=== PATIENT | female | born 1950 | race Caucasian/White ===

== ENCOUNTER 2020-04-06 11:34 | Outpatient (CLI) | payer MEDICARE, SELFPAY ==
--- NOTE | 2020-04-06 11:50 | MM_ITS ---
WS: [id number] BILATERAL SCREENING DIGITAL MAMMOGRAM WITH CAD HISTORY: SCREEN COMPARISON: 01/22/2019 and 01/04/2019 and 11/19/2017 Bilateral CC and MLO views submitted. Computer aided detection analyzed. Breast composition: There are scattered areas of fibroglandular density. No suspicious masses, microc alcifications or architectural distortion. Nodular asymmetries are present in the upper-outer quadran ts of each breast. Similar in appearance to the prior study of 01/04/2019. Benign calcifications withi n each breast. MM/[place] [id number] IMPRESSION: BI-RADS: 2-Benign FOLLOW UP: 1 Year Follow-up
== END 2020-04-06 11:35 | disposition home or self-care (01) ==
LOC: RADSHAW 11:44
PROVIDERS: PCP Family Medicine; Visit Provider Family Medicine
DX: Z12.31 Encounter for screening mammogram for malignant neoplasm of breast (principal)
CPT/HCPCS: 77067

== ENCOUNTER 2020-10-11 01:00 | Inpatient (IN) | payer MEDICARE, SELFPAY ==
[2020-10-11] VITALS (95 sets, daily range): BP systolic 90–169; BP diastolic 63–101; PULSE 51–93; RESP 6–25; TEMP 36.4–37; O2SAT 90–100; BMI 24.6
--- NOTE | 2020-10-11 01:17 | ECG_ITS ---
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 Operator: : 1950 Requested By: Winsome Cavazos Order Number: [id number] Rajesh MD: NEREYDA JETER Measurements Intervals [place] Rate: 66 P: 73 [place]: 154 QRS: 76 QRSD: 109 T: 49 QT: 411 QTc: 433 Interpretive Statements SINUS RHYTHM WITH MARKED SINUS ARRHYTHMIA ST DEPRESSION, CONSIDER SUBENDOCARDIAL INJURY [0.1+ mV ST DEPRESSION] Compared to ECG 06/12/2018 14:23:52 ST (T wave) deviation now present Electronically Signed On 10-11-2020 19:37:47 OIL REFINERY PROCESS TECHNICIAN by NEREYDA JETER [id number]
--- NOTE | 2020-10-11 01:17 | XR_ITS ---
WS: [id number] Exam: XR chest 1V portable [id number] Date/Time of Exam: 10/11/2020 1:26 AM Reason For Exam: chest pain Comparison 06/12/2018. The lungs are fully expanded. No consolidating infiltrates or pleural effusions. Normal cardiomediast inal structures and regional bony elements. Mild plaque atelectasis in the left base. Monitoring lead s superimpose the chest. XR/XR chest 1V portable [id number] IMPRESSION: 1. No acute cardiopulmonary finding. 2. Mild left basal plaque atelectasis.
[2020-10-11 01:28] LABS: Basophils # 0.1 10^3/uL (0.0-0.1); Basophils % 0.8 %; Eosinophils # 0.3 10^3/uL (0.0-0.8); Hematocrit 47.4 % (37.0-47.0); Hemoglobin 15.1 g/dL (11.5-15.3); Lymphocytes # 3.1 10^3/uL (0.8-4.8); Lymphocytes % 32.4 %; Mean Corpuscular HGB Conc 31.9 g/dL (30.0-36.0); Mean Corpuscular Hemoglobin 31.1 pg (28.0-34.0); Mean Corpuscular Volume 97.7 fL (81-99); Mean Platelet Volume 10.2 fL (7.4-10.4); Monocytes # 0.8 10^3/uL (0.2-0.9); Monocytes % 8.1 %; Neutrophils # 5.34 10^3/uL (1.8-7.7); Neutrophils % 55.5 %; Nucleated Red Blood Cells % 0 %; Platelet Count 324 10^3/cmm (130-400); Red Blood Count 4.85 10^6/uL (4.1-5.3); Red Cell Distribution Width 13.2 % (12.1-15.1); White Blood Count 9.6 10^3/uL (4.0-10.0)
[2020-10-11] MEDS: aspirin 81 mg Chew Tablet 324 MG PO (01:28)
[2020-10-11] MEDS: LORazepam 2 mg/mL INJ 1 mL 0.5 MG IVP (01:28)
[2020-10-11 01:39] LABS: D Dimer <= 0.27 ug/mIFEU (0-0.59)
[2020-10-11] MEDS: clopidogrel 300 mg Tablet PO (01:53)
[2020-10-11] MEDS: enoxaparin 80 mg/0.8 mL Syringe 60 MG SUBCUT (01:54)
--- NOTE | 2020-10-11 02:16 | PC.NURSE ---
Lab called and stated they would attempt collecting the blood, green top and red, top on the pt due to multiple missed attempts by nursing staff. Lab states it will be 15-20 minutes.
--- NOTE | 2020-10-11 02:41 | W.ED.GENADLT ---
HPI - General Adult General: Chief complaint: General Medical Stated complaint: Bilateral Arm Heaviness Time Seen by Provider: 10/11/20 01:05 History of Present Illness: HPI narrative: This patient is a 70-year-old female who presents with vague complaints of not feeling well. She has been having heaviness in her arms bilaterally since yesterday. This is been a intermittent symptom. Tonight she woke up from sleep with sweating, lightheadedness, nausea. She also has the very uncomfortable feeling in both arms again. She repeatedly apologized for not being able to tell me what is wrong. During my history and physical she became anxious and unable to remain still in the bed. She kept trying to sit up and lay down to get more comfortable. She denied any pain during this episode but just said she did not feel right. She denies a history of cardiac disease. She had a episode less severe than this a few years ago and was seen here in the ER. At that time she had a stress test that was unremarkable. She tells me that she was diagnosed with anxiety at that time. She has not been sick recently. No fever, cough, malaise, diarrhea. Onset (ago): day(s) (Intermittent for 1 day) Location: back, left, right and upper extremity Radiation: non-radiation Pain Consistency: intermittent Associated symptoms: Reports diaphoresis, dyspnea, malaise, nausea and other (Sense of impending doom); Deny chest pain, headache(s) or rash Review of Systems General: Reports: 10 or more systems reviewed and unremarkable except in HPI and below Const: Reports: malaise and diaphoresis Eyes: Denies: change in vision ENMT: Denies: odynophagia Card: Denies: chest pain or swelling of feet/ankles Resp: Reports: dyspnea GI: Reports: nausea : Denies: flank pain or difficulty voiding Musc: Denies: neck pain or back pain Skin/Breast: Denies: rash Neuro: Denies: headache(s), numbness in extremities or weakness in extremities Jamal/Lymph: Denies: easy bruising or easy bleeding Physical Exam Const: COMMON NORMALS: patient oriented x3, no limitations and alert GENERAL APPEARANCE: cooperative, in distress and anxious HENMT: HEAD & SCALP: normal to inspection FACE & SINUS: normal facial exam Eye: GENERAL EYE: appearance normal, both eyes and all related structures Neck/C-Spine: COMMON NORMALS: supple, no meningeal signs and no JVD Chest: COMMONS NORMALS: normal inspection of the chest Resp: COMMON NORMALS: normal respiratory effort, No use of accessory muscles and clear to auscultation bilaterally AUSCULTATION: clear to auscultation bilaterally Cardio: COMMON NORMALS: no JVD, regular rate, regular rhythm and No murmurs present (Cardio) RATE: regular rate RHYTHM: regular rhythm GI: COMMON NORMALS: Normal to inspection, nondistended, normoactive bowel sounds present, Soft to palpation and non-tender INSPECTION: Yes normal to inspection AUSCULTATION: Yes normoactive bowel sounds PALPATION: Yes Soft to palpation Back/Pelvis: COMMON NORMALS: thoracic and lumbar spine normal to inspection Extremity: COMMON NORMALS: normal to inspection Neuro: COMMON NORMALS: patient oriented x3, moves all extremities, no focal motor deficits and no sensory deficits noted SENSORIUM/ORIENTATION: Yes alert MENINGEAL SIGNS: Yes no meningeal signs Psych: COMMON NORMALS: mental status grossly normal, cooperative and normal affect Skin: COMMON NORMALS: no rashes or lesions noted and turgor normal GENERAL SKIN EXAM: no rashes or lesions noted and turgor normal Course ED course: Patient presents with vague complaints of malaise and arm pain. I am concerned that these are anginal equivalents in a 70-year-old female. She had an episode of feeling extremely anxious and uncomfortable although she was not able to localize symptoms to any sort of pain. This resolved. The EKG was done as this episode was resolving and does show some significant ST depression in V1, V2, V3, V4. Concern for ischemia based on these and on review of a prior EKG from 2018 it is a new finding. I called Dr. Goss and sent him copies of the current and prior EKG. He agrees that there abnormal findings but does not feel like she needs to go to the Feeder Operator at this time. I would agree with that assessment. She is already had aspirin. I have ordered nitroglycerin, Plavix, Lovenox. Initial troponin is still pending. We will continue to closely monitor for further EKG changes or clinical changes. Reevaluation(s): Reevaluation #1: Patient remained pain-free after the initial episode. All her other symptoms resolved as well. The initial changes on her EKG resolved on her second which was done when she was not having any symptoms. Her initial troponin was negative but her second came back with a delta over 200. She has gotten Lovenox, aspirin, Plavix per Dr. Tan. She will be admitted to the CSU by the hospitalist with consult from Dr. Tan. Patient is aware of the diagnosis and plan. Vital Signs: Vital signs: Vital Signs Temperature 97.5 F L 10/11/20 01:06 Pulse Rate 77 10/11/20 05:55 Respiratory Rate 15 10/11/20 05:55 Blood Pressure 107/81 10/11/20 05:55 Pulse Oximetry 96 10/11/20 05:55 MDM - General Adult Lab Data: Labs: Lab Results 10/11/20 10/11/20 10/11/20 Range/Units 01:18 01:18 01:18 WBC 9.6 (4.0-10.0) 10^3/ uL RBC 4.85 (4.1-5.3) 10^6/u L Hgb 15.1 (11.5-15.3) g/dL Hct 47.4 H (37.0-47.0) % MCV 97.7 (81-99) fL MCH 31.1 (28.0-34.0) pg MCHC 31.9 (30.0-36.0) g/dL RDW 13.2 (12.1-15.1) % Plt Count 324 (130-400) 10^3/c mm MPV 10.2 (7.4-10.4) fL Neut % (Auto) 55.5 % Lymph % (Auto) 32.4 % [place] % (Auto) 8.1 % Eos % (Auto) 3.0 % Baso % (Auto) 0.8 % Neut # (Auto) 5.34 (1.8-7.7) 10^3/u L Lymph # (Auto) 3.1 (0.8-4.8) 10^3/u L [place] # (Auto) 0.8 (0.2-0.9) 10^3/u L Eos # (Auto) 0.3 (0.0-0.8) 10^3/u L Baso # (Auto) 0.1 (0.0-0.1) 10^3/u L Nucleated RBC % (a uto) 0 % Nucleated RBCs # 0.0 /100WBC D-Dimer <= 0.27 (0-0.59) ug/mIFE U Sodium Cancelled Potassium Cancelled Chloride Cancelled Carbon Dioxide Cancelled Anion Gap Cancelled BUN Cancelled Creatinine Cancelled GFR Calculation Cancelled Glucose Cancelled Calculated Osmolal ity Cancelled Calcium Cancelled Total Bilirubin Cancelled AST Cancelled ALT Cancelled Alkaline Phosphata se Cancelled Troponin T Baselin e Troponin T 120 Min tunica-biloxi (0-10) ng/L Delta Troponin T (0-10) ABS# NT-Pro-B Natriuret Pep Cancelled Total Protein Cancelled Albumin Cancelled Globulin Cancelled Lipase Cancelled 10/11/20 10/11/20 10/11/20 Range/Units 01:18 02:32 02:32 WBC (4.0-10.0) 10^3/ uL RBC (4.1-5.3) 10^6/u L Hgb (11.5-15.3) g/dL Hct (37.0-47.0) % MCV (81-99) fL MCH (28.0-34.0) pg MCHC (30.0-36.0) g/dL RDW (12.1-15.1) % Plt Count (130-400) 10^3/c mm MPV (7.4-10.4) fL Neut % (Auto) % Lymph % (Auto) % [place] % (Auto) % Eos % (Auto) % Baso % (Auto) % Neut # (Auto) (1.8-7.7) 10^3/u L Lymph # (Auto) (0.8-4.8) 10^3/u L [place] # (Auto) (0.2-0.9) 10^3/u L Eos # (Auto) (0.0-0.8) 10^3/u L Baso # (Auto) (0.0-0.1) 10^3/u L Nucleated RBC % (a uto) % Nucleated RBCs # /100WBC D-Dimer (0-0.59) ug/mIFE U Sodium 139 Potassium 3.5 Chloride 102 Carbon Dioxide 26 Anion Gap 14.5 BUN 16 Creatinine 1.1 H GFR Calculation 49.1 L Glucose 161 H Calculated Osmolal ity 293 Calcium 8.9 Total Bilirubin 0.2 AST 13 ALT 12 Alkaline Phosphata se 103 Troponin T Baselin e Cancelled 77 H Troponin T 120 Min tunica-biloxi (0-10) ng/L Delta Troponin T (0-10) ABS# NT-Pro-B Natriuret Pep 174 H Total Protein 6.9 Albumin 3.8 Globulin 3.1 Lipase 59 /18/20 Range/Units 04:40 WBC (4.0-10.0) 10^3/ uL RBC (4.1-5.3) 10^6/u L Hgb (11.5-15.3) g/dL Hct (37.0-47.0) % MCV (81-99) fL MCH (28.0-34.0) pg MCHC (30.0-36.0) g/dL RDW (12.1-15.1) % Plt Count (130-400) 10^3/c mm MPV (7.4-10.4) fL Neut % (Auto) % Lymph % (Auto) % [place] % (Auto) % Eos % (Auto) % Baso % (Auto) % Neut # (Auto) (1.8-7.7) 10^3/u L Lymph # (Auto) (0.8-4.8) 10^3/u L [place] # (Auto) (0.2-0.9) 10^3/u L Eos # (Auto) (0.0-0.8) 10^3/u L Baso # (Auto) (0.0-0.1) 10^3/u L Nucleated RBC % (a uto) % Nucleated RBCs # /100WBC D-Dimer (0-0.59) ug/mIFE U Sodium Potassium Chloride Carbon Dioxide Anion Gap BUN Creatinine GFR Calculation Glucose Calculated Osmolal ity Calcium Total Bilirubin AST ALT Alkaline Phosphata se Troponin T Baselin e Troponin T 120 Min tunica-biloxi 291.3 H (0-10) ng/L Delta Troponin T 214.3 H* (0-10) ABS# NT-Pro-B Natriuret Pep Total Protein Albumin Globulin Lipase Coding Level of Care Code ED Service Car Driver for Chg Fwd Exam Comprehensive
[2020-10-11 03:04] LABS: Troponin(5th) Baseline 77 ng/L (0-10)
[2020-10-11 03:13] LABS: Alanine Aminotransferase 12 U/L (0-33); Albumin Level 3.8 g/dL (3.5-5.2); Alkaline Phosphatase 103 IU/L (35-105); Anion Gap 14.5 (5-19); Aspartate Amino Transferase 13 U/L (0-32); Blood Urea Nitrogen 16 mg/dL (8-23); Calcium 8.9 mg/dL (8.5-10.5); Carbon Dioxide 26 mmol/L (22-29); Chloride 102 mmol/L (98-107); Globulin 3.1 g/dL (1.3-4.6); Glomerular Filtration Rate 49.1 mL/min (90-130); Glucose 161 mg/dL (65-115); Lipase 59 U/L (13-60); NT Pro B Type Natriuretic Pept 174 pg/mL (0-125); Osmolality Calculated 293 mOsm/kg (285-295); Potassium 3.5 mmol/L (3.5-5.1); Sodium 139 mmol/L (136-145); Total Bilirubin 0.2 mg/dL (0.15-1.2); Total Protein 6.9 g/dL (6.6-8.7)
--- NOTE | 2020-10-11 03:17 | ECG_ITS ---
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
[2020-10-11 05:48] LABS: Troponin 5 2HR 291.3 ng/L (0-10); Troponin 5 2HR Delta 214.3 ABS# (0-10)
--- NOTE | 2020-10-11 07:09 | PM.HP ---
Providers/Chief Complaint Admitting Physician: Wood Crawley MD Primary Care Provider: Andry Calvin MD Chief Complaint: covid symtoms History of Present Illness Jerrica Wallis is a 70 year old female that presented to the hospital with complaints of bilateral shoulder and upper arm discomfort, described as pressure. She reports she has had 2 episodes. 1 was in the late afternoon yesterday, really occurring at rest around 4:56 PM. She reports it was associated with severe fatigue, lasting approximately 1 hour. She reports another episode occurred this morning, that woke her from sleep. This was approximately 12:30 AM. The discomfort in her shoulders came back, more severe associated with diaphoresis nausea. She reported she could hardly get up out of bed to go to the bathroom. Ambulance was called and she came to the emergency department. This episode lasted approximately 1 hour as well. She denied any chest discomfort, or shortness of breath. She has not had any fever lately. She reports no history of Covid nor exposure to it. She denies any previous history of coronary disease, or exertional symptoms. In the emergency department she received aspirin, sublingual nitroglycerin, Plavix, Lovenox, and Ativan. Review of Systems General: Reports: 10 or more systems reviewed and unremarkable except in HPI and below Const: Denies: fever(s) Eyes: Denies: change in vision ENMT: Denies: throat pain Card: Denies: chest pain Resp: Denies: dyspnea GI: Denies: abdominal pain : Denies: flank pain Musc: Reports: extremity pain; Denies: neck pain Skin/Breast: Denies: rash Neuro: Denies: headache(s) Psych: Denies: anxiety Endo: Denies: polyuria Jamal/Lymph: Denies: easy bruising All/Imm: Denies: urticaria Medications/Allergies Allergies Allergy/AdvReac Type Severity Reaction Status Date / Time No Known Allergies Allergy Verified 10/11/20 01:06 PFSH Acute PFSH: Medical History (Updated 10/11/20 @ 07:26 by Santo Marsh MD) Hypothyroidism Insomnia Surgical History (Updated 10/11/20 @ 07:19 by Santo Marsh MD) History of carpal tunnel surgery History of knee surgery Family History (Updated 10/11/20 @ 07:19 by Santo Marsh MD) Other Diabetes Hypertension Stroke Social History (Updated 10/11/20 @ 07:20 by Santo Marsh MD) Smoking and tobacco status: current every day smoker Alcohol intake: never Supplemental PFSH Information: 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 Oropharynx clear. Neck is supple no lymphadenopathy or thyromegaly Cardiovascular regular rate and rhythm without murmur, no S3 or S4 Lungs clear without wheezing or crackles Abdomen is soft nontender with positive bowel sounds. No obvious organomegaly was deferred Extremities no cyanosis clubbing or edema, cap refill brisk Skin no rash Neuro no obvious focal deficits. Data : 10/11/20 01:18 10/11/20 02:32 Other data: Initial troponin 77 with repeat 298 120 minutes. BNP 174 LFTs normal TSH pending Lipase normal Chest x-ray without infiltrate. Atherosclerotic disease noted aortic arch. EKG initially demonstrates ST depression, inferior in V1 through 3. Repeat EKG sinus rhythm normal axis and no significant ST wave depression. A&P Assessment and plan (1) NSTEMI (non-ST elevated myocardial infarction): Admission to cardiac stepdown unit Telemetry Full anticoagulation with Lovenox As she is chest discomfort free currently nitroglycerin as needed Aspirin, Plavix(she has already been loaded) Beta-darwin Statin. 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 Time Spent in Patient Care: Greater than 35 minutes Coding Level of Care Code Acute Hurricane Tracker for [facility] Diagnoses NSTEMI (non-ST elevated myocardial infarction) I21.4 Tobacco dependency F17.200 Hypothyroidism E03.9 Insomnia G47.00
--- NOTE | 2020-10-11 07:10 | PC.NURSE ---
Patient arrived to CSU from ER at 0705. VSS. Patient denies any CP or SOB at this time. See admission assessment. Nurse to continue to monitor.
--- NOTE | 2020-10-11 07:17 | ECG_ITS ---
Test Date: 2020-10-11 Pat Name: Jerrica Wallis Department: Room: 106 Gender: Female Resource Conservation Manager: : 1950 Requested By: Winsome Cavazos Order Number: [id number] Rajesh MD: NEREYDA JETER Measurements Intervals [place] Rate: 76 P: 68 [place]: 155 QRS: 68 QRSD: 85 T: 91 QT: 403 QTc: 453 Interpretive Statements SINUS RHYTHM Compared to ECG 10/11/2020 03:24:06 Sinus arrhythmia no longer present Electronically Signed On 10-11-2020 19:39:59 FISH HATCHERY MANAGER by NEREYDA JETER [id number]
[2020-10-11 07:24] LABS: Thyroid Stimulating Hormone 3.89 uIU/mL (0.27-4.20)
--- NOTE | 2020-10-11 07:34 | USCV_ITS ---
JoriJerrica mcdowell Age: 70 Gender: F : 1950 Exam Date: 10/11/2020 11:52 Ordering Phys: Wood Crawley MD Technologist: Leslie Gonsalez Exam Location: [facility] [place] Indication: NSTEMI BP: 106 / 63 HR: 106 Rhythm: Sinus Technical Quality: Adequate MEASUREMENTS (Male / Female) Normal Values 2D ECHO LV Diastolic Diameter PLAX 3.3 cm 4.2 - 5.9 / 3.9 - 5.3 cm LV Systolic Diameter PLAX 1.8 cm LV Chamber Size 2.9 cm IVS Diastolic Thickness 0.9 cm 0.6 - 1.0 / 0.6 - 0.9 cm IVS Systolic Thickness 1.5 cm LVPW Diastolic Thickness 1.8 cm 0.6 - 1.0 / 0.6 - 0.9 cm LVPW Systolic Thickness 1.7 cm RV Chamber Size 2.5 cm LVOT Diameter 2.0 cm LV Ejection Fraction 2D Teich 79.6 % LV Ejection Fraction MOD 2C 59.1 % LV Ejection Fraction 2C AL 61.1 % LA Diameter 3.2 cm LA Width 3.3 cm LA Height 4.8 cm RA Width 2.2 cm RA Height 3.7 cm Aorta at Sinotubular Diameter 2.8 cm M-MODE LV Diastolic Diameter MM 4.9 cm 4.2 - 5.9 / 3.9 - 5.3 cm LV Systolic Diameter MM 2.7 cm LV Ejection Fraction MM Teich 76.4 % IVS Diastolic Thickness MM 1.0 cm 0.6 - 1.0 / 0.6 - 0.9 cm IVS Systolic Thickness MM 1.2 cm LVPW Diastolic Thickness MM 1.0 cm 0.6 - 1.0 / 0.6 - 0.9 cm LVPW Systolic Thickness MM 1.6 cm Aortic Annulus Diameter 3.0 cm LA Ao Ratio MM 1.4 MV E Point Septal Separation 0.5 cm DOPPLER AV Peak Velocity 134.0 cm/s LVOT Peak Velocity 109.0 cm/s AV Area Cont Eq vti 1.8 cm squared AV Area Cont Eq pk 2.6 cm squared MV Area PHT 4.1 cm squared Mitral E to A Ratio 1.0 MV E' Velocity 48.5 cm/s Mitral E to MV E' Ratio 9.1 Mitral E to LV E' Lateral Ratio 9.2 Mitral E to LV E' Septal Ratio 9.1 TR Peak Velocity 202.3 cm/s TR Peak Gradient 16.4 mmHg TV Peak E Velocity 42.0 cm/s Right Atrial Pressure 3.0 mmHg Pulmonary Artery Systolic Pressu 19.4 mmHg PV Peak Velocity 92.0 cm/s RV Acceleration Time 0.1 s RV Ejection Time 0.3 s RV AcT/ET 0.5 FINDINGS Left Ventricle Normal left ventricular cavity size. Normal left ventricular systolic function. No regional wall motion abnormalities. Left ventricular ejection fraction is estimated at 78 %. Grade II/IV diastolic dysfunction, moderately elevated filling pressures. Right Ventricle The right ventricle is normal in size and function. Right Atrium The right atrium is normal in size. Left Atrium The left atrium is normal in size. Mitral Valve Moderately thickened mitral valve. No mitral valve stenosis. Mild mitral valve regurgitation. Aortic Valve Moderate aortic valve calcification. No aortic valve stenosis. No aortic valve regurgitation. Tricuspid Valve Structurally normal tricuspid valve without significant stenosis or regurgitation. Pulmonary artery systolic pressure is normal. Pulmonic Valve Structurally normal pulmonic valve without significant stenosis. There is no pulmonic regurgitation. Pericardium Normal pericardium without effusion. Aorta Normal ascending aorta dimension. CONCLUSIONS 1-Normal left ventricular cavity size. Normal left ventricular systolic function. No regional wall motion abnormalities. Left ventricular ejection fraction is estimated at 78 %. Grade II/IV diastolic dysfunction, moderately elevated filling pressures. 2-Moderately thickened mitral valve. No mitral valve stenosis. Mild mitral valve regurgitation. 3-Moderate aortic valve calcification. No aortic valve stenosis. No aortic valve regurgitation. 4-There is no pericardial effusion. 5-Pulmonary artery systolic pressure is within normal limits. 6-Right atrial pressure is around 5 mm of mercury. 7-No significant change since the prior echocardiogram study of 02/03/2019. Wood Tan MD (Electronically Signed) Final Date: 11 October 2020 19:00 S
[2020-10-11] MEDS: sodium chloride 0.9% 1,000 ML 50 ML IV (07:55)
--- NOTE | 2020-10-11 08:06 | P.CONIM_ITS ---
Providers/Reason For Consult Consulting Physican/Specialty*: Cardiology Reason for Consult*: Non-ST elevation GA Attending Physician: Santo Marsh MD Primary Care Provider: Andry Calvin MD History of Present Illness History of Present Illness Jerrica Wallis is a 70 year old female past medical history significant for hypertension hyperlipidemia strong family history of coronary artery disease history of tobacco abuse quit in 1996 presented with left shoulder heaviness and back pain. She admits to radiation of the pain in the right arm as well. According to the patient she was feeling short of breath nauseated with those episodes. Yesterday she woke up in the middle of the night with worsening of symptoms therefore she asked her to call 911. EKG in the ER was suggestive of ST depression in anterior leads. She was treated as per ACS protocol given low molecular weight heparin aspirin and loaded with 300 mg of Plavix. Serial cardiac markers are suggested with non-ST elevation GA. After nitroglycerin ST depression normalized. Troponin T fifth generation increased from 77 to 291. Currently patient is chest pain-free. She denies PND orthopnea but admits to shortness of breath upon walking. She admits to chest pressure upon mild exertion. Review of Systems General: Reports: 10 or more systems reviewed and unremarkable except in HPI and below Const: Reports: malaise and diaphoresis; Denies: fever(s) Eyes: Denies: change in vision ENMT: Denies: throat pain or odynophagia Card: Denies: chest pain or swelling of feet/ankles Resp: Denies: dyspnea GI: Reports: nausea; Denies: abdominal pain : Denies: flank pain or difficulty voiding Musc: Reports: extremity pain; Denies: neck pain or back pain Skin/Breast: Denies: rash Neuro: Denies: headache(s), numbness in extremities or weakness in extremities Psych: Denies: anxiety Endo: Denies: polyuria Jamal/Lymph: Denies: easy bruising or easy bleeding All/Imm: Denies: urticaria Meds/Allergies Home Medications and Allergies Home Medications Medication Instructions Recorded Confirmed Last Taken Type amitriptyline 75 mg PO BEDTIME 10/11/20 10/11/20 Unknown History estradiol 0.025 mg TRANSDERMAL Q7D 10/11/20 10/11/20 Unknown History ferrous gluconate 324 mg PO DAILY 10/11/20 10/11/20 Unknown History levothyroxine See Rx Instructions .ROUTE .COMPLEX 10/11/20 10/11/20 Unknown History levothyroxine See Rx Instructions .ROUTE .COMPLEX 10/11/20 10/11/20 Unknown History medroxyprogesterone 2.5 mg PO DAILY 10/11/20 10/11/20 Unknown History Allergies Allergy/AdvReac Type Severity Reaction Status Date / Time No Known Allergies Allergy Verified 10/11/20 01:06 Current Medications Current Medications Generic Name Dose Route Start Last Admin Trade Name Freq PRN Reason Stop Dose Admin Sodium Chloride 1,000 mls @ 50 mls/hr 10/11/20 07:45 10/11/20 07:55 Sodium Chloride 0.9% IV 50 mls/hr .Q20H AMRIK Administration PFSH Acute PFSH: Medical History Hypothyroidism Insomnia Surgical History History of carpal tunnel surgery History of knee surgery Family History Other Diabetes Hypertension Stroke Social History Smoking and tobacco status: current every day smoker Alcohol intake: never Supplemental PFSH Information: 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 NECK: No jugular vein distension. HEENT: No cyanosis. No icterus. No pallor. HEART: Regular S1 and S2. No murmur, rub or gallop. LUNGS: Clear to auscultate bilaterally. ABDOMEN: Soft, nontender and nondistended. Positive bowel sounds. No guarding, rebound or tenderness. CENTRAL NERVOUS SYSTEM: Grossly nonfocal. EXTREMITIES: Lower extremities without edema bilaterally. A&P Assessment and plan (1) NSTEMI (non-ST elevated myocardial infarction): Continue aspirin add statin beta-darwin, patient is on low molecular weight heparin we will proceed with left heart cath/PCI. Patient has been explained all risk benefit and alternative for the procedure. Patient has been explained the risk for major minor bleeding infection hematoma PCI complication including urgent emergent bypass arrhythmia and worse case scenario . I have asked patient if she would like me to talk to her family members and her spouse. She told me that she does not want to bother them and her must be sleeping now. She has told me that once he will be awake she will inform him or I can inform him and then. She would like to proceed with it. She is a good candidate for dual antiplatelet therapy. We will ask for echocardiogram. Status: Acute (2) Essential hypertension: Well-controlled continue current regimen. Status: Acute (3) Hyperlipidemia associated with type 2 diabetes mellitus: Patient has been started on statin Status: Acute Consult Attestations Medical Necessity Statement: Patient require continuation hospitalization for above defined care. Coding Level of Care Code New Pt Acute Cardiothoracic Surgeon for Lashaun Jimenez Patient Type New History Detailed Exam Detailed Medical Decision Making Moderate Complexity Diagnoses NSTEMI (non-ST elevated myocardial infarction) I21.4 Essential hypertension I10 Hyperlipidemia associated with type 2 diabetes mellitus E11.69; E78.5
[2020-10-11 09:40] LABS: Troponin 5 6HR 423.4 ng/L (0-10); Troponin 5 6HR Delta 346.4 ng/L (0-12)
[2020-10-11] MEDS: diphenhydrAMINE 50 mg Capsule PO (10:19)
[2020-10-11] MEDS: clopidogrel 75 mg Tablet PO (10:19)
[2020-10-11] MEDS: metoprolol tartrate 25 mg Tablet 12.5 MG PO (10:20)
[2020-10-11] MEDS: aspirin 81 mg EC Tablet PO (10:20)
--- NOTE | 2020-10-11 10:40 | XACV_ITS ---
Exam Room: [facility] Ht: 165 cm Wt: 67 kg BSA: 1.76 m2 Gender: Female : 1950 Exam Priority: Routine Procedure(s): Procedure Description: Diagnostic procedure Procedure Description: Left Heart Catheterization Diagnostic Cath Status: Elective Diagnostic Findings * LM has 0% stenosis. * pLAD: Mild 20% stenosis, WAYNE: 3 flow. * Proximal Circumflex Coronary Artery: Severe 95% stenosis, WAYNE: 0 flow. * mRCA to dRCA: Mild 20% stenosis, WAYNE: 3 flow. * Coronary angiography shows right dominance. PCI Status: Urgent PCI Indication: NSTE - ACS Interventional Findings * Proximal Circumflex Coronary Artery: 95% stenosis treated with AB TREK 2.50X12 RX BALLOON, MDT R ISATU 3.0X15 ENID, and two MDT NC EUPHORA RX 3.19S86SH BALLOON. 0% residual stenosis, WAYNE: 3 flow. Conclusions 1. There is severe coronary artery disease with three vessel disease. 2. Proximal Circumflex Coronary Artery was treated with three Balloon and Drug Eluting Stent. Recommendations * 1-Return to inpatient for close monitoring and routine cath care 2-Risk factor modification for secondary prevention 3-Statin and aspirin 81 mg life--long, if tolerated 4-Patient was pre-loaded with 300 mg of Plavix, continue Plavix 75mg p.o. daily for at least one year. We will assess at the end of one year again to continue if further or not 5-Continue optimal medical management 6-Follow up with Dr. Tan in four weeks and your primary care in 10 days. Interventional RX Recommendation: PCI w/o planned CABG Diagnostic RX Recommendation: PCI w/o planned CABG Clinical Evaluation EBL: 5mL-10mL Procedural Details Procedure Consent Obtained. Admit Source: In Patient. Pre-Procedure Time Out. Identified patient by full name and date of as verbalized by the patient/guarantor. Does the consent match the physician's order: Yes. Accurate & Complete Informed Consent: Yes. Inpatient/Outpatient History & Physical on Chart: Yes. If H&P is completed, is and addenduem needed: N/A; If yes, is the addendum complete: N/A. Visualize and Verify Site with Patient/Guarantor: N/A. Relevant Radiology Images available: N/A. Pre-op teaching completed and patient verbalized understanding. The risks, benefits, and alternatives of sedation and/or procedure were discussed by physician. The patient agrees to continue. Procedure started. Correct patient, site and procedure confirmed by cath team. PERRLA. Strong, equal hand broomcorn thresher bilaterally. Lungs clear x 5 lobes. IV Site on Arrival: 20 gauge in the left anticubital. Oxygen started at 2liters/min via nasal canula. bilateral groins was prepped with chloroprep then draped in the usual sterile fashion. right radial was prepped with chloroprep then draped in the usual sterile fashion. Physician notified. Baseline sample Acquired. HR: 81 BPM. Physician arrived. Physician scrubbed in. Immediate Pre-Procedure Time Out. Correct Patient: Yes; Correct Procedure: Yes; Correct Site: Yes; Correct Patient Position: Yes; Correct Supplies: Yes; Dried Flammable Prep: Yes; Blood Products Available: N/A;. Lidocaine 1% infiltrated to the right radial. Arterial access obtained. A 5 jamaican TIG catheter in over wire. Multiple views taken of left coronary artery. Catheter redirected to the RCA. Multiple views taken of right coronary artery. Catheter out. 6 jamaican XB 3 guide catheter was inserted over the wire. Robertson guidewire was advanced through the guide catheter to lesion in the mid Circ. Inflation number : 1 A AB TREK 2.50X12 RX BALLOON was prepped and advanced across the Prox CX , then inflated to 12 MASOUD for 0:16 seconds. Inflation number: 2 The AB TREK 2.50X12 RX BALLOON was reinflated across the Prox CX, to 12 MASOUD for 0:12 seconds. Balloon out. intact sten out. Inflation Number : 3 A GIOVANNI Mota ISATU 3.0X15 ENID -Lot Number# [id number] exp date: 07-31-2022 was prepped and advanced across the Prox CX. The stent was deployed at 14 MASOUD for 0:27 seconds. Results checked. Inflation number : 4 A MDT NC EUPHORA RX 3.08B96HD BALLOON was prepped and advanced across the Prox CX , then inflated to 0 MASOUD for 0:00 seconds. Balloon out. Inflation number : 5 A MDT NC EUPHORA RX 3.95H20OL BALLOON was prepped and advanced across the Prox CX , then inflated to 16 MASOUD for 0:16 seconds. Inflation number: 6 The MDT NC EUPHORA RX 3.51R11IM BALLOON was reinflated across the Prox CX, to 14 MASOUD for 0:09 seconds. Balloon out. Results checked. Wire out. Guide catheter out. TR band placed. Hemostasis obtained. Post Procedure: Pulses reassessed and unchanged. PERRLA. Strong, equal hand broomcorn thresher bilaterally. Medication's Wasted: Lidocaine 1% = 18 mL. Medication's Wasted: Heparin = 1000 units. Medication's Wasted: Nitro = 49.8 mg. Total IV fluids: 73.3 mL. Contrast type used: Visipaque 320 mgI/mL, 500 mL bottle. Contrast Material : Visipaque 219 ml. A TR Band was successful obtaining hemostatsis at the Right Radial artery insertion site. [facility] Clinical Fraility Score: 3: Managing Well. Jewelry Enameler Indications: ACS > 24 hours. Chest Pain Symptom Assessment: Atypical Angina. Cardiovascular Instability: No,. PCI Indication: NSTE. Post-op diagnosis: PCI to proximal occulsion. Complications: none. Estimated blood loss: 5mL-10mL. Procedure completed. Patient transferred by bed to 1st floor. Vital chart was stopped. Access Site Site: Right Radial artery Sheath Size: 6 Fr Hemostasis Method: TR Band Hemostasis Success: Successful Procedure Medications Start: 10:51 AM Stop: 10:51 AM Medication: Versed Amount: 1 mg Route: I.V. Start: 10:51 AM Stop: 10:51 AM Medication: Fentanyl Amount: 50 mcg Route: I.V. Start: 10:54 AM Stop: 10:54 AM Medication: Versed Amount: 1 mg Route: I.V. Start: 10:54 AM Stop: 10:54 AM Medication: Fentanyl Amount: 50 mcg Route: I.V. Start: 10:59 AM Stop: 10:59 AM Medication: Versed Amount: 1 mg Route: I.V. Start: 10:59 AM Stop: 10:59 AM Medication: Fentanyl Amount: 50 mcg Route: I.V. Start: 11:00 AM Stop: 11:00 AM Medication: Nitrogylcerin Amount: 200 mcg Route: I.A. Start: 11:09 AM Stop: 11:09 AM Medication: Versed Amount: 1 mg Route: I.V. Start: 11:09 AM Stop: 11:09 AM Medication: Fentanyl Amount: 50 mcg Route: I.V. Start: 11:13 AM Stop: 11:13 AM Medication: Lovenox (Enoxaparin) Amount: 30 mg Route: I.V. bolus Start: 11:25 AM Stop: 11:25 AM Medication: Versed Amount: 1 mg Route: I.V. Start: 11:25 AM Stop: 11:25 AM Medication: Fentanyl Amount: 50 mcg Route: I.V. Start: 11:36 AM Stop: 11:36 AM Medication: Versed Amount: 1 mg Route: I.V. Start: 11:36 AM Stop: 11:36 AM Medication: Fentanyl Amount: 50 mcg Route: I.V. I, the attending physician, have reviewed and verified all procedure medications. Yes, all medications given per verbal order History/Risk Factors Hypertension: No Dyslipidemia: No Peripheral Arterial Disease (PAD): No Myocardial Infarction (TX): No Obesity: No Renal Disease: No Tobacco Use: Former Prior Interventions PCI: No CABG: No Valve Surgery: No Report Signatures Finalized by Wood Tan MD on 10/22/2020 06:17 PM
--- NOTE | 2020-10-11 12:30 | PC.NURSE ---
Patient arrived to CSU from manager cath lab at 1200. 2 nurse verification of right wrist. hematoma noted on arrival measures 2 cm. Direct pressure held by manager cath lab nurse. Second TR band applied. Dr. Tan notified. No new orders received. Nurse to continue to monitor. Verbal order received to increase fluid rate to 100 ml/hr for 6 hours then discontinue. Stop lovenox order now. RBVO.
--- NOTE | 2020-10-11 13:30 | PC.NURSE ---
Second TR band removed at 1330 per protocol. Bruising noted, soft to palpitation. Nurse to continue to monitor.
--- NOTE | 2020-10-11 16:15 | PC.NURSE ---
Oozing noted at insertion site while letting air off TR band. Air added until hemostasis achieved. Nurse to continue to monitor.
--- NOTE | 2020-10-11 17:29 | PC.RESP ---
Smoking Cessation information sent to patient.
--- NOTE | 2020-10-11 19:33 | PC.NURSE ---
Received report from ELAINE Avila. Patient resting in bed. Patient is s/p [facility] with TR Band in place to right wrist. Bruising noted proximal to band. No hematoma at present. Removed 2ml of air from band. No bleeding observed. Instructed patient on Plavix, Metoprolol, Lipitor side effects and importance of compliance with the new medications. Patient verbalized complete understanding and requested information in writing prior to discharge. Assured patient that information would be provided. Patient expressed thanks. Patient denies pain or other needs. She did ask about home medications which we reviewed and does have reordered for tonight. Reinforced instruction regarding [facility] site care and restrictions. Patient demonstrated understanding.
[2020-10-11] MEDS: temazepam 15 mg Capsule PO (20:41)
[2020-10-11] MEDS: atorvastatin 40 mg Tablet 80 MG PO (20:41)
--- NOTE | 2020-10-11 20:59 | PC.NURSE ---
TR band removed per protocol. No s/s of bleeding or hematoma. Bruising noted to arm from previous hematoma which was resolved prior to shift changed. Cleaned site. Covered 2x2 and bio-occlusive dressing. Instructed patient on signs of possible bleeding, site care and restrictions. Patient verbalized complete understanding. Medications administered as ordered. Reinforced instruction of medications. Patient expressed thanks and understanding of these. Patient denies pain or other needs. No distress observed.
[2020-10-12 00:01] VITALS: BP 114/61; PULSE 78; RESP 22; TEMP 36.6; O2SAT 93
--- NOTE | 2020-10-12 03:46 | PC.NURSE ---
Dressing to right wrist remains c,d,i. No s/s of bleeding or hematoma formation observed.
[2020-10-12 04:08] VITALS: BP 132/67; PULSE 92; RESP 20; TEMP 36.7; O2SAT 95
[2020-10-12 05:04] LABS: Basophils # 0.1 10^3/uL (0.0-0.1); Basophils % 0.6 %; Eosinophils # 0.2 10^3/uL (0.0-0.8); Eosinophils % 2.4 %; Hematocrit 42.5 % (37.0-47.0); Hemoglobin 13.8 g/dL (11.5-15.3); Lymphocytes # 1.6 10^3/uL (0.8-4.8); Lymphocytes % 19.3 %; Mean Corpuscular HGB Conc 32.5 g/dL (30.0-36.0); Mean Corpuscular Hemoglobin 31.3 pg (28.0-34.0); Mean Corpuscular Volume 96.4 fL (81-99); Mean Platelet Volume 9.7 fL (7.4-10.4); Monocytes # 0.6 10^3/uL (0.2-0.9); Monocytes % 7.4 %; Neutrophils # 5.78 10^3/uL (1.8-7.7); Neutrophils % 70.1 %; Nucleated Red Blood Cells % 0 %; Platelet Count 299 10^3/cmm (130-400); Red Blood Count 4.41 10^6/uL (4.1-5.3); Red Cell Distribution Width 13.3 % (12.1-15.1); White Blood Count 8.3 10^3/uL (4.0-10.0)
[2020-10-12 05:25] LABS: Chol HDL Ratio 5.52 mg/dL (0.0-4.40); Cholesterol 232 mg/dL (0-200); HDL Cholesterol 42 mg/dL (60-100); LDL Cholesterol Calculated 158 mg/dL (50-129); LDL HDL Ratio 3.76 RATIO (0.00-3.22); Triglycerides 158 mg/dL (0-150)
[2020-10-12 05:27] LABS: Anion Gap 12.7 (5-19); Blood Urea Nitrogen 8 mg/dL (8-23); Calcium 8.7 mg/dL (8.5-10.5); Carbon Dioxide 25 mmol/L (22-29); Chloride 106 mmol/L (98-107); Glomerular Filtration Rate 61.9 mL/min (90-130); Glucose 91 mg/dL (65-115); Osmolality Calculated 288 mOsm/kg (285-295); Potassium 3.7 mmol/L (3.5-5.1); Sodium 140 mmol/L (136-145)
[2020-10-12] MEDS: levothyroxine 150 mcg Tablet 75 MCG PO (06:15)
--- NOTE | 2020-10-12 06:19 | PC.NURSE ---
Patient continues to only c/o of mild dizziness. VS cycling at Q5min.
[2020-10-12 07:11] VITALS: BP 114/75; PULSE 81; RESP 18; TEMP 36.8; O2SAT 98
--- NOTE | 2020-10-12 07:22 | P.DS_ITS ---
Discharge Providers Date of Admission: 10/11/20 06:17 Date of Discharge: October 12, 2020 Attending Provider at Admission: Wood Crawley MD Attending Provider at Discharge: Santo Marsh MD Primary Care Provider: Andry Calvin MD Diagnoses at Discharge Discharge Diagnosis (1) NSTEMI (non-ST elevated myocardial infarction): Status: Acute (2) Essential hypertension: Status: Acute (3) Hyperlipidemia: Status: Acute Reason for Visit Reason for Visit: [facility] Hospital Course Jerrica is a 70-year-old white female who presented to the hospital with atypical chest discomfort. Significant elevation in troponin was noted, with positive delta. She was diagnosed with a non-ST elevation myocardial infarction. She got full dose anticoagulation, aspirin, Plavix load, initiation of beta-darwin as well as statin. Cardiology was consulted. Angiogram was performed on October 12. Full report is pending. I was informed patient underwent a circum flex drug-eluting stent, via right radial artery approach. There were no complications. Echocardiogram was completed demonstrating preserved EF, 2/4 diastolic dysfunction. TSH was normal. Blood sugar day of discharge 91. LDL checked in 158. The following day after the angiogram and stent patient had no discomfort. She was able to ambulate in the halls. She was tolerating all medication without difficulty. It was thought she could discharge home, with close follow-up with her lacquer sprayer as well as primary care provider. She was instructed not to smoke, and her estrogen products were discontinued. She will be taking aspirin, Plavix, beta-dariwn, statin as new medicines following her diagnosis of coronary artery disease with stent placement. Physical Exam Narrative: EXAM NARRATIVE: General exam is no apparent distress Cardiovascular regular rate and rhythm without murmur Lungs clear Abdomen is soft with positive bowel sounds Extremities no cyanosis clubbing or edema, cap refill brisk. Right radial artery with no significant hematoma. Full function of right hand. Discharge Data Data Completed and Pending: Completed Studies During Hospitalization Category Date Time Status XR chest 1V edgar ble [id number] Stat Exams 10/11/20 01:17 Completed CV echo complete* [id number] Routine Ultrasound 10/11/20 07:34 Completed Pending at discharge Category Date Time Status MICROSOFT DEVELOPER request for service Routin e Exams 10/11/20 10:40 Ordered Labs from last 24 hours 10/12/20 10/12/20 10/12/20 04:33 04:33 04:33 WBC 8.3 RBC 4.41 Hgb 13.8 Hct 42.5 MCV 96.4 MCH 31.3 MCHC 32.5 RDW 13.3 Plt Count 299 MPV 9.7 Neut % (Auto) 70.1 Lymph % (Auto) 19.3 Bremer % (Auto) 7.4 Eos % (Auto) 2.4 Baso % (Auto) 0.6 Neut # (Auto) 5.78 Lymph # (Auto) 1.6 Bremer # (Auto) 0.6 Eos # (Auto) 0.2 Baso # (Auto) 0.1 Nucleated RBC % (a uto) 0 Nucleated RBCs # 0.0 Sodium 140 Potassium 3.7 Chloride 106 Carbon Dioxide 25 Anion Gap 12.7 BUN 8 Creatinine 0.9 GFR Calculation 61.9 L Glucose 91 Calculated Osmolal ity 288 Calcium 8.7 Troponin T Hi Sens 6Hr Troponin T Hi Sens 6Hr Delta Triglycerides 158 H Cholesterol 232 H LDL Cholesterol, C alc 158 H HDL Cholesterol 42 L LDL/HDL Ratio 3.76 H Cholesterol/HDL Ra domingo 5.52 H TSH 10/11/20 10/11/20 08:26 02:32 WBC RBC Hgb Hct MCV MCH MCHC RDW Plt Count MPV Neut % (Auto) Lymph % (Auto) Bremer % (Auto) Eos % (Auto) Baso % (Auto) Neut # (Auto) Lymph # (Auto) Bremer # (Auto) Eos # (Auto) Baso # (Auto) Nucleated RBC % (a uto) Nucleated RBCs # Sodium Potassium Chloride Carbon Dioxide Anion Gap BUN Creatinine GFR Calculation Glucose Calculated Osmolal ity Calcium Troponin T Hi Sens 6Hr 423.4 H Troponin T Hi Sens 6Hr Delta 346.4 H* Triglycerides Cholesterol LDL Cholesterol, C alc HDL Cholesterol LDL/HDL Ratio Cholesterol/HDL Ra domingo TSH 3.89 Vitals: Last Vital Signs Temp 98.2 F 10/12/20 07:11 Pulse 81 10/12/20 07:11 Resp 18 10/12/20 07:11 BP 114/75 10/12/20 07:11 Pulse Ox 98 10/12/20 07:11 Discharge Plan Discharge Patient Disposition: Home Condition: Stable Prescriptions: New atorvastatin 40 mg Tablet 80 mg PO BEDTIME Qty: 30 RF: 0 clopidogrel 75 mg Tablet 75 mg PO DAILY Qty: 30 RF: 0 aspirin 81 mg Tablet,Delayed Release (Dr/Ec) 81 mg PO DAILY Qty: 30 RF: 0 metoprolol tartrate 25 mg Tablet 25 mg PO BID Qty: 60 RF: 0 Continued amitriptyline 75 mg tablet 75 mg PO BEDTIME RF: 0 levothyroxine 75 mcg tablet See Rx Instructions .ROUTE .COMPLEX RF: 0 levothyroxine 50 mcg tablet See Rx Instructions .ROUTE .COMPLEX RF: 0 ferrous gluconate 324 mg (38 mg iron) tablet 324 mg PO DAILY RF: 0 Discontinued medroxyprogesterone 2.5 mg tablet 2.5 mg PO DAILY RF: 0 estradiol 0.025 mg/24 hr patch weekly 0.025 mg transdermal Q7D RF: 0 Discharge Orders: Discharge Order (Routine); Ordered 10/12/20 Ordered By: Santo Marsh Referrals: Wood Tan MD [Physician] - 4-7 days (Followup with DISTRICT WILDLIFE MANAGER next week, Dr. Tan 6-8 weeks) Andry Calvin MD [Primary Care Provider] - 4-7 days Discharge Diet: Cardiac Discharge Activity: Increase activity as tolerated Patient Instructions: Left Heart Catheterization (DC), Coronary Angioplasty (DC) Activity Restrictions/Additional Instructions: No smoking. Stop your estrogen. Keep follow-up as prescribed. Discharge Attestations Time Spent in Discharge Care*: greater than 30 min Time Spent in Smoking Cessation: 3 to 10 minutes Quality Metrics Clinical Quality Measures During this hospital stay, did patient experience: AMI Clinical Trial Participant: No Contraindication to aspirin (AMI): Aspirin given Contraindication to statin: Statin prescribed Contraindication to PCI: PCI performed Coding Level of Care Code Acute Hasher Machine Operator for [facility] Fwd Diagnoses NSTEMI (non-ST elevated myocardial infarction) I21.4 Essential hypertension I10 Hyperlipidemia E78.5
[2020-10-12] MEDS: metoprolol tartrate 25 mg Tablet PO (08:49)
[2020-10-12] MEDS: aspirin 81 mg EC Tablet PO (08:49)
[2020-10-12] MEDS: clopidogrel 75 mg Tablet PO (08:50)
--- NOTE | 2020-10-12 10:49 | PC.NURSE ---
Signee went over discharge instructions with patient. patient was brought out by wheelchair by signee. patient left with her in good condition.
[2020-10-12 10:56] VITALS: BP 108/62; PULSE 69; RESP 19; O2SAT 96
--- NOTE | 2020-10-12 18:57 | PM.PN ---
Subjective Subjective: Interval history: Denies any complaint. No overnight event status post drug-eluting stent to proximal circumflex Medications: Reviewed: Yes Vitals/I&O/Wt Last Vital Signs Temp 98.2 F 10/12/20 07:11 Pulse 69 10/12/20 10:56 Resp 19 H 10/12/20 10:56 BP 108/62 10/12/20 10:56 Pulse Ox 96 10/12/20 10:56 10/12/20 10/12/20 10/12/20 06:59 14:59 22:59 Intake Total 150 / 1337.500 120 / 120 Output Total 400 / 400 Balance -250 / 937.500 120 / 120 Weight last 48 hrs Weight 148 lb Physical Exam Narrative: EXAM NARRATIVE: GENERAL: Patient is alert, awake and oriented x3. NECK: No jugular vein distension. HEENT: No cyanosis. No icterus. No pallor. HEART: Regular S1 and S2. No murmur, rub or gallop. LUNGS: Clear to auscultate bilaterally. ABDOMEN: Soft, nontender and nondistended. Positive bowel sounds. No guarding, rebound or tenderness. CENTRAL NERVOUS SYSTEM: Grossly nonfocal. EXTREMITIES: Lower extremities without edema bilaterally. Data : 10/12/20 04:33 10/12/20 04:33 A&P Assessment and plan (1) NSTEMI (non-ST elevated myocardial infarction): Status post PCI to proximal circumflex patient has no overnight event. Overall she is feeling much better. Continue aspirin statin beta-darwin. Echocardiogram showed normal ejection fraction. She can be discharged home and follow-up with cardiology in 7 to 10 days. Status: Acute (2) Essential hypertension: Well-controlled continue current regimen. Status: Acute (3) Hyperlipidemia associated with type 2 diabetes mellitus: Patient has been started on statin Status: Acute Attestations Medical Necessity Statement*: Patient require continuation hospitalization for above defined care. 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
--- NOTE | 2020-10-18 10:37 | PC.SOCIAL ---
Patient called to indicate she did not make it home with a necklace and wants to know why she was taken off hormone therapy. While returning call walked into house with necklace in hand. Updated [place] this was found. Discussed with Dr Marsh prior to returning call. He indicates being on hormone therapy puts her at increased risk of another cardiac event and she was here with chest pain and a stent was placed. Updated patient of this information. She was encouraged to discuss with PCP since she feels that this should be tapered. She verbalized understanding.
== END 2020-10-12 10:30 | disposition home or self-care (01) | DRG 247 ==
LOC: ER 06:24 → CSU 06:27
PROVIDERS: Internal Medicine Cardiovascular Disease; Admitting Provider Internal Medicine; Emergency Provider Emergency Medicine; PCP Family Medicine; Visit Provider Internal Medicine
PROC: 027034Z Dilation of Coronary Artery, One Artery with Drug-eluting Intraluminal Device, Percutaneous Approach (ICD-10-PCS; principal; 2020-10-11 10:00)
PROC: 027034Z Dilation of Coronary Artery, One Artery with Drug-eluting Intraluminal Device, Percutaneous Approach (ICD-10-PCS; 2020-10-11 10:00)
DX: I21.4 Non-ST elevation (NSTEMI) myocardial infarction (principal); F17.210 Nicotine dependence, cigarettes, uncomplicated; E03.9 Hypothyroidism, unspecified; G47.00 Insomnia, unspecified; E78.5 Hyperlipidemia, unspecified; I25.10 Atherosclerotic heart disease of native coronary artery without angina pectoris
CPT/HCPCS: 12345; 36415; 71045; 80048; 80053; 80061; 83690; 83880; 84443; 84484; 85025; 85378; 93005; 93306; 93454; 96372; 99283; C1725; C1769; C1874; C1887; C1894; C9600; J1644; J1650; J2060; J2250; J2405; J3010; J3490; J7030; Q0163; Q9967

== ENCOUNTER 2021-05-18 14:17 | Outpatient (CLI) | payer MEDICARE, SELFPAY ==
--- NOTE | 2021-05-18 14:36 | XR_ITS ---
WS: [id number] SCREENING DEXA SCAN SOS Online [employer] CLINICAL INFORMATION: POST MENOPAUSAL COMPARISON: None. FINDINGS: The L1-L4 bone mineral density measures 1.212 g/cm2. This corresponds to a T score score of 0.3 and Z score of 2.0. Left femoral neck bone mineral density measures 0.853 g/cm2. This corresponds to a T score of -1.2 an d Z score of 0.3. Right femoral neck bone mineral density measures 0.780 g/cm2. This corresponds to a T score -1.8of an d Z score of -0.3. Mean femoral neck bone mineral density measures 0.817 g/cm2. This corresponds to a T score of -1.5 an d Z score of 0.0. XR/XR DEXA axial skeleton* [id number] IMPRESSION: Normal bone mineralization lumbar spine. Osteopenia femoral necks. Patient's FRAX calculated 10 year probability for major osteoporotic fracture i s 20.9 % and osteoporotic hip fracture is 4.7%.
== END 2021-05-18 14:18 | disposition home or self-care (01) ==
LOC: RADWPI 14:20
PROVIDERS: PCP Family Medicine; Visit Provider Family Medicine
DX: Z78.0 Asymptomatic menopausal state (principal)
CPT/HCPCS: 77080

== ENCOUNTER 2021-06-11 13:55 | Outpatient (CLI) | payer MEDICARE, SELFPAY ==
--- NOTE | 2021-06-11 14:05 | MM_ITS ---
WS: [id number] BILATERAL SCREENING DIGITAL MAMMOGRAM WITH CAD HISTORY: SCREENING COMPARISON: 04/06/2020, 01/22/2019, 01/04/2019, 11/19/2017, 10/03/2016 Bilateral CC and MLO views submitted. Computer aided detection analyzed. Breast composition: There are scattered areas of fibroglandular density. No suspicious masses, microc alcifications or architectural distortion. Numerous nodules are present in the upper quadrants of eac h breast. These scattered, partially obscured nodules have been present over multiple prior years in various sizes. Margins are partially obscured and there are some calcifications. No distortion. Thes e nodules have been seen in various sizes over multiple prior years. MM/[id number] IMPRESSION: BI-RADS: 2-Benign FOLLOW UP: 1 Year Follow-up There are multiple nodules in the upper outer quadrants of each breast that hav e been evaluated in prior years. Unless there are new palpable abnormalities no further imaging is necessary at this time.
== END 2021-06-11 13:56 | disposition home or self-care (01) ==
LOC: RADSHAW 14:01
PROVIDERS: PCP Family Medicine; Visit Provider Family Medicine
DX: Z12.31 Encounter for screening mammogram for malignant neoplasm of breast (principal)
CPT/HCPCS: 77067

== ENCOUNTER 2022-07-04 11:55 | Outpatient (CLI) | payer MEDICARE, SELFPAY ==
--- NOTE | 2022-07-04 12:02 | MM_ITS ---
WS: [id number] BILATERAL SCREENING DIGITAL TOMOSYNTHESIS MAMMOGRAM WITH CAD HISTORY: SCREENING COMPARISON: 06/11/2021, 01/04/2019, 11/19/2017 Bilateral CC and MLO views with tomosynthesis and synthetic mammography submitted. Computer aided det ection analyzed. Breast composition: There are scattered areas of fibroglandular density. No suspicious masses, microc alcifications or architectural distortion. There are numerous partially obscured masses in the upper- outer quadrant of each breast. Very similar in appearance to prior examinations. The largest in the L EFT upper quadrant measures 14 mm in diameter. These asymmetries and masses have been present on prio r studies and no change. MM/[id number] IMPRESSION: BI-RADS: 2-Benign FOLLOW UP: 1 Year Follow-up
== END 2022-07-04 11:56 | disposition home or self-care (01) ==
PROVIDERS: PCP Family Medicine; Visit Provider Family Medicine
DX: Z12.31 Encounter for screening mammogram for malignant neoplasm of breast (principal)
CPT/HCPCS: 77063; 77067

== ENCOUNTER → 2022-09-25 11:55 | Outpatient (BNVA) | payer MEDICARE, SELFPAY | PROVIDERS: PCP Family Medicine; Visit Provider Internal Medicine Cardiovascular Disease | DX: I25.10 Atherosclerotic heart disease of native coronary artery without angina pectoris (principal); E78.49 Other hyperlipidemia; I10 Essential (primary) hypertension; Z95.5 Presence of coronary angioplasty implant and graft; I25.2 Old myocardial infarction; Z87.891 Personal history of nicotine dependence | CPT/HCPCS: 99213; 99214 ==

== ENCOUNTER 2022-11-16 14:37 | Emergency (ER) | payer MEDICARE, SELFPAY ==
[2022-11-16 14:46] VITALS: BP 151/84; PULSE 90; RESP 16; TEMP 36.5; O2SAT 97; BMI 25.9
--- NOTE | 2022-11-16 15:01 | W.ED.EXTPRO ---
HPI - Extremity Problem General: Chief complaint: Extremity Problem,Nontraumatic Stated complaint: right leg pain Time Seen by Provider: 11/16/22 15:01 History of Present Illness: Ms. Wallis is a 72-year-old lady with CAD, hypertension, hyperlipidemia, tobaccoism history presenting to the emergency department due to abnormal feeling in her leg. She reports atraumatic onset approximately 1 week ago and since that time is noticed intermittent abnormal feeling and soreness in the back of her calf. Additionally today she noticed more prominent swelling. She is also noticed bruises and is unsure where it came from. Intensity symptoms moderate. Course is worsened. Denies back pain or other neurologic symptoms. No other specific changes in health, exacerbating, or alleviating factors identified. Onset (ago): week(s) Location: lower extremity Quality: aching Exacerbating factors: weight bearing and palpation Associated symptoms: Reports no associated symptoms Review of Systems General: Reports: 10 or more systems reviewed and unremarkable except in HPI and below PFSH ED PFSH: Medical History Essential hypertension Hypothyroidism Insomnia Surgical History History of carpal tunnel surgery History of knee surgery Stented coronary artery Family History Other Diabetes Hypertension Stroke Social History Smoking and tobacco status: former smoker Quit status (tobacco): has quit using tobacco Year quit tobacco: 1996 Former quit date comment: 1.5 PPD X 30 YEARS Alcohol intake: never Physical Exam Const: COMMON NORMALS: alert GENERAL APPEARANCE: cooperative and well developed HENMT: COMMON NORMALS: normocephalic and atraumatic HEAD & SCALP: normocephalic and atraumatic Eye: COMMON NORMALS: conjunctivae normal CONJUNCTIVA: Yes conjunctivae normal SCLERA: sclerae normal Neck/C-Spine: COMMON NORMALS: supple GENERAL: Yes trachea midline Resp: COMMON NORMALS: clear to auscultation bilaterally EFFORT & INSPECTION: Yes able to speak in complete sentences AUSCULTATION: clear to auscultation bilaterally Cardio: COMMON NORMALS: regular rate and regular rhythm RATE: regular rate RHYTHM: regular rhythm GI: COMMON NORMALS: Soft to palpation PALPATION: Yes Soft to palpation and No Tenderness to palpation present (GI) PERCUSSION: normal to percussion Extremity: NARRATIVE EXTREMITY EXAM: Moderate tenderness to palpation with mild ecchymosis. GENERAL: Yes normal exam except as noted and No edema Neuro: COMMON NORMALS: moves all extremities SENSORIUM/ORIENTATION: Yes alert and No Orientation impaired Psych: COMMON NORMALS: mental status grossly normal and Normal thought process present THOUGHT PROCESS: Normal thought process present Course Vital Signs: Vital signs: Vital Signs Temperature 97.7 F 11/16/22 14:46 Pulse Rate 80 11/16/22 17:34 Respiratory Rate 18 11/16/22 17:34 Blood Pressure 130/66 11/16/22 17:34 Pulse Oximetry 98 11/16/22 17:34 Oxygen Delivery Me thod 11/16/22 14:46 MDM - Extremity (Nontraumatic) Medical Decision Making 72-year-old lady presenting to the emergency room due to concern over leg symptoms. Exam as above. Primary concern is DVT, ultrasound negative for DVT. She denies any other signs of systemic illness. Most likely etiology of patient's symptoms is unclear, nonspecific lower extremity swelling with possible contusion. The results of ED evaluation were discussed with the patient including prescriptions and/or symptomatic cares (if applicable) including appropriate and responsible use, followup plan, and return precautions. The patient verbalized understanding and felt safe for discharge. Medical Records I reviewed the patient's medical records. Lab Data I reviewed the patient's lab results. Radiology Impressions Venous Duplex 11/16/22 15:05 IMPRESSION: No sonographic evidence of deep vein thrombosis. Discharge Plan Discharge Patient Disposition: Home Clinical Impression: Leg pain, right Condition: Stable Prescriptions: No Action estradiol 0.025 mg/24 hr patch semiweekly topical pantoprazole [Protonix] 40 mg tablet,delayed release (DR/EC) 40 mg PO DAILY PRN Rx Instructions: Must have follow-up for further refills ascorbic acid (vitamin C) 500 mg capsule 500 mg PO DAILY atorvastatin 40 mg tablet 40 mg PO BEDTIME Qty: 90 6RF Rx Instructions: Must have follow-up for further refills clopidogrel 75 mg tablet 75 mg PO DAILY Qty: 90 6RF Rx Instructions: Must have follow-up for further refills ezetimibe 10 mg tablet 10 mg PO DAILY Qty: 90 6RF Rx Instructions: Must have follow-up for further refills fluticasone propionate 50 mcg/actuation spray,suspension 2 spray intranasal DAILY 180 Days Qty: 16 5RF Rx Instructions: administer into each nostril metoprolol succinate 25 mg tablet extended release 24 hr 25 mg PO DAILY Qty: 90 3RF amitriptyline 75 mg tablet 75 mg PO BEDTIME Rx Instructions: (PRESCRIBED 3 TABLETS AT BEDTIME-PT STATES PHARMACY FILLED IT WRONG AND SHE TAKES 75MG BEDTIME) levothyroxine 75 mcg tablet See Rx Instructions .ROUTE .COMPLEX Rx Instructions: 75 mcg orally ON FRI, FRI, , FRIDAY- 50MCG ON OTHER DAYS levothyroxine 50 mcg tablet See Rx Instructions .ROUTE .COMPLEX Rx Instructions: 50 mcg orally on FRI, , FRIDAY & 75 MCG ON OTHER DAYS ferrous gluconate 324 mg (38 mg iron) tablet 324 mg PO DAILY aspirin 81 mg Tablet,Delayed Release (Dr/Ec) 81 mg PO DAILY Qty: 30 0RF Discharge Orders: Discharge ED (Routine); Ordered 11/16/22 Ordered By: Silas Blanco Referrals: Andry Calvin MD [Primary Care Provider] - Discharge Diet: Usual diet Discharge Activity: Increase activity as tolerated Patient Instructions: Leg Edema (ED), Leg Pain (ED), Pain Management Activity Restrictions/Additional Instructions: Thank you for visiting the emergency department. You were seen and evaluated for leg pain and swelling. The exact cause of your symptoms is unclear though does not need hospitalization at this time. You may use [id number] medications such as acetaminophen and ibuprofen for pain however please do not exceed the daily recommended dosage as listed on the packaging and please keep in mind that many namebrand medications contain the same active ingredients. While using NSAIDs please ensure that you continue to take your pantoprazole. Please also continue your other medications. Please follow-up with your primary care provider. Return to the emergency department for uncontrolled symptoms or anything else that you are concerned about and feel needs emergency department evaluation. Coding Level of Care Code ED Filling Machine Set Up Mechanic for Lashaun Jimenez
--- NOTE | 2022-11-16 15:05 | USR_ITS ---
PROCEDURE INFORMATION: Exam: US Duplex Right Lower Extremity Veins, Limited Exam date and time: 11/16/2022 4:07 PM Age: 72 years old Clinical indication: Pain; Leg, lower; Right; Additional info: Swelling, pain, eval dvt TECHNIQUE: Imaging protocol: Real-time Duplex ultrasound of the Right Lower Extremity with 2-D riley scale, color Doppler flow and spectral waveform analysis with image documentation. Limited exam was focused on the right lower extremity veins. COMPARISON: US soft tissue/extremity [id number] 04/10/2022 3:25 PM FINDINGS: Right deep veins: Unremarkable. The common femoral, femoral, proximal profunda femoral, popliteal, posterior tibial and peroneal veins are patent without thrombus. Normal Doppler waveforms. Normal compressibility and/or augmentation response. Right superficial veins: Unremarkable. Saphenofemoral junction is patent without thrombus. Soft tissues: Unremarkable. US/[place] [id number] IMPRESSION: No sonographic evidence of deep vein thrombosis.
[2022-11-16 17:34] VITALS: BP 130/66; PULSE 80; RESP 18; O2SAT 98
== END 2022-11-16 18:44 | disposition home or self-care (01) ==
PROVIDERS: Emergency Provider Emergency Medicine; PCP Family Medicine
DX: M79.604 Pain in right leg (principal); Z79.82 Long term (current) use of aspirin; Z79.02 Long term (current) use of antithrombotics/antiplatelets; I10 Essential (primary) hypertension; Z87.891 Personal history of nicotine dependence
CPT/HCPCS: 93971; 99284

== ENCOUNTER → 2022-12-09 13:57 | Outpatient (BNVA) | payer MEDICARE, SELFPAY | PROVIDERS: PCP Family Medicine; Visit Provider Internal Medicine | DX: Z95.5 Presence of coronary angioplasty implant and graft (principal); I10 Essential (primary) hypertension; E78.49 Other hyperlipidemia; I73.9 Peripheral vascular disease, unspecified; Z87.891 Personal history of nicotine dependence | CPT/HCPCS: 99214 ==

== ENCOUNTER 2023-01-09 12:39 | Outpatient (CLI) | payer MEDICARE, SELFPAY ==
--- NOTE | 2023-01-09 13:50 | USCV_ITS ---
Jerrica Wallis Age: 72 Gender: F : 1950 Exam Date: 01/09/2023 13:21 Ordering Phys: Dmitri Haro M.D ([email or web address]) Technologist: DOREEN [place] [facility] [place]: BILATERAL LEG PAIN Risk Factors: Previous Vascular Surgery: RIGHT LEFT BP: 156.0 / 93.00 BP: 163.0/ 98.00 0 0 Waveform Velocity (cm/s) Velocity (cm/s) Waveform Triphasic 71.2 Iliac Prox 61.7 Triphasic Triphasic 74.5 Iliac Mid 57.2 Triphasic Triphasic 62.6 Iliac Distal 52.3 Triphasic Triphasic 79.6 TREE TAPPING LABORER 51.7 Triphasic Triphasic 72.8 SFA Prox 47.9 Triphasic Triphasic 58.5 SFA Mid 41.5 Triphasic Triphasic 63.2 SFA Dist 38.9 Triphasic Triphasic 44.2 POP 29.0 Triphasic Triphasic 54.9 DIGITAL PRINTER OPERATOR 47.6 Triphasic Triphasic 42.9 DPA 55.7 Triphasic 1.1 RENETTA 1.0 FINDINGS Mild diffuse plaques were noted in the iliac and femoral arteries bilaterally. Resting RENETTA 1.1 on the right and 1.0 on the left Normal arterial Doppler waveforms and velocities CONCLUSIONS No evidence of any significant arterial obstruction, based on the above findings. Dr Tyson Hernandez MD [facility] (Electronically Signed) Final Date: 11 January 2023 18:49 S
== END 2023-01-09 12:40 | disposition home or self-care (01) ==
LOC: RAD 12:41
PROVIDERS: PCP Family Medicine; Visit Provider Internal Medicine
DX: M79.604 Pain in right leg (principal); M79.605 Pain in left leg
CPT/HCPCS: 93925

== ENCOUNTER 2023-02-04 10:56 | Emergency (ER) | payer MEDICARE, SELFPAY ==
[2023-02-04 11:06] VITALS: BP 162/89; PULSE 98; RESP 20; TEMP 36.5; O2SAT 100; BMI 24.3
--- NOTE | 2023-02-04 11:22 | ED_ITS ---
HPI - Chest Pain General: Chief Complaint: Chest Pain Stated Complaint: Chest Discomfort Time Seen by Provider: 02/04/23 11:13 History of Present Illness: Patient presents to the ER with complaints of chest discomfort, not necessarily pain just mild pressure feels like she cannot take a big deep breath, also been having chills. Patient states this has been going on for about 2 weeks but got worse a couple days ago when patient had a stressful incident at home. Patient does have cardiac disease and has a least 1 stent in her heart proximally placed 2 years ago. Patient also has peripheral vascular disease and cold extremities. Denies any pain in her extremities. Patient is also on anxiety medicine that she has admitted to recently taking more than prescribed and she is trying to wean herself back down. Patient says she may be going through withdrawals from not using it as much is normal. 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) Onset (ago): week(s) (1 to 2 weeks ago worsening within the last couple days) Prior episodes: Yes Onset: other (During stressful situations at home) Pain location: other (Entire chest region) Pain radiation: none Severity: mild Quality: tightness and heaviness Relieving factors: nothing Exacerbating factors: stress Associated symptoms: Deny abdominal pain, dyspnea, fever(s), nausea, palpitations or vomiting Treatment prior to arrival: none Risk Factors: Coronary artery disease risk factors: smoking history, hyperlipidemia and hypertension Review of Systems General: Reports: 10 or more systems reviewed and unremarkable except in HPI and below Const: Reports: chills; Denies: fever(s) or body aches Eyes: Denies: change in vision ENMT: Denies: throat pain or odynophagia Card: Reports: chest pain; Denies: palpitations, irregular heart rhythm or edema Resp: Denies: dyspnea, productive cough, non-productive cough or wheezing GI: Denies: abdominal pain, nausea, vomiting or diarrhea : Denies: flank pain, difficulty voiding, dysuria or urinary frequency Musc: Denies: neck pain, back pain or extremity pain Skin/Breast: Denies: rash, pruritus or erythema Neuro: Denies: headache(s), numbness in extremities or weakness in extremities Psych: Reports: anxiety and panic attacks; Denies: depression, mood swings, suicidal ideation or homicidal ideation Endo: Denies: polyuria, polydipsia or tired all the time Jamal/Lymph: Denies: easy bruising, easy bleeding or petechiae All/Imm: Denies: urticaria, throat swelling or tongue swelling PFSH ED PFSH: Medical History Essential hypertension Hypothyroidism Insomnia Surgical History History of carpal tunnel surgery History of knee surgery Stented coronary artery Family History Other Diabetes Hypertension Stroke Social History Smoking and tobacco status: former smoker Quit status (tobacco): has quit using tobacco Year quit tobacco: 1996 Former quit date comment: 1.5 PPD X 30 YEARS Alcohol intake: never Physical Exam Const: COMMON NORMALS: no acute distress (Anxious appearing), average body habitus, patient oriented x3, no limitations, healthy appearing, alert and well nourished HENMT: COMMON NORMALS: normocephalic, atraumatic and hearing grossly normal bilaterally HEAD & SCALP: normocephalic and atraumatic Eye: COMMON NORMALS: Equal, round and reactive pupils present, EOMs intact bilaterally and conjunctivae normal CONJUNCTIVA: Yes conjunctivae normal PUPIL: Yes Equal, round and reactive pupils present Neck/C-Spine: COMMON NORMALS: full ROM, no lymphadenopathy, supple, no JVD and Thyroid normal THYROID: Thyroid normal Lymph: LYMPHATIC: no lymphadenopathy noted Chest: COMMONS NORMALS: normal inspection of the chest and normal palpation of entire chest wall Resp: COMMON NORMALS: normal respiratory effort, No retractions, No use of accessory muscles and clear to auscultation bilaterally AUSCULTATION: clear to auscultation bilaterally Cardio: COMMON NORMALS: no JVD, regular rate, regular rhythm, S1 normal heart sound present, S2 normal heart sound present and No gallops present (Cardio) RATE: regular rate RHYTHM: regular rhythm HEART SOUNDS: S1 normal heart sound present and S2 normal heart sound present GI: COMMON NORMALS: Normal to inspection, nondistended, normoactive bowel sounds present, Soft to palpation, non-tender, No hepatosplenomegaly present and no masses PALPATION: Yes Soft to palpation and Yes No hepatosplenomegaly present : COMMON NORMALS: Yes no CVA tenderness BLADDER/KIDNEY EXAM: Yes no CVA tenderness Back/Pelvis: COMMON NORMALS: no CVA tenderness, thoracic and lumbar spine normal to inspection and no thoracic nor lumbar tenderness Extremity: COMMON NORMALS: normal to inspection Neuro: COMMON NORMALS: patient oriented x3, CN's II-XII intact bilaterally, moves all extremities, no focal motor deficits and no sensory deficits noted SENSORIUM/ORIENTATION: Yes alert Psych: COMMON NORMALS: speech normal APPEARANCE: Yes grossly normal ATTITUDE: Yes Other attitude/behavior findings present (Psych) (Anxious) ACTIVITY/MOTOR BEHAVIOR: Yes appropriate eye contact SPEECH: Yes normal spee ch MOOD & AFFECT: Yes anxious Skin: COMMON NORMALS: no rashes or lesions noted, no wounds and turgor normal GENERAL SKIN EXAM: no rashes or lesions noted and turgor normal Course Vital Signs: Vital signs: Vital Signs Temperature 97.7 F 02/04/23 11:06 Pulse Rate 98 02/04/23 11:06 Respiratory Rate 20 H 02/04/23 11:06 Blood Pressure 162/89 02/04/23 11:06 Pulse Oximetry 100 02/04/23 11:06 Oxygen Delivery Me thod 02/04/23 11:06 MDM - Chest Pain Medical Decision Making Patient presents to the ER with complaints of possible chest tightness/chest pressure. Patient states has been going on for couple weeks but got worse last couple days. This seems to be brought on by stressful situation in the household, patient does have anxiety and is on anxiety medicine. Patient has had a cardiac stent placed approximately 2 years ago but she said this does not really feel the same. Upon further history and physical exam of the patient as well as serial labs and EKGs which revealed benign findings is felt this was most likely anxiety and not cardiac in nature. Patient was instructed to take the anxiety medicine as needed, follow-up with her primary care physician within the next week and will be discharged home. If this pain worsens or changes in any way patient is to come back to the ER for further evaluation as her condition may change. Differential Diagnosis Unlikely acute massive pulmonary embolism, acute respiratory failure, acute myocardial infarction, cardiac arrest or sudden cardiac Medical Records I reviewed the patient's medical records. Lab Data I reviewed the patient's lab results. 02/04/23 12:40 02/04/23 11:10 Laboratory Results WBC 8.4 10^3/uL (4.0-10.0) 02/04/23 12:40 Corrected WBC Cancelled 02/04/23 11:10 RBC 4.49 10^6/uL (4.1-5.3) 02/04/23 12:40 Hgb 13.8 g/dL (11.5-15.3) 02/04/23 12:40 Hct 42.4 % (37.0-47.0) 02/04/23 12:40 MCV 94.4 fl (81-99) 02/04/23 12:40 MCH 30.7 pg (28.0-34.0) 02/04/23 12:40 MCHC 32.5 g/dL (30.0-36.0) 02/04/23 12:40 RDW 13.1 % (12.1-15.1) 02/04/23 12:40 Plt Count 278 10^3/cmm (130-400) 02/04/23 12:40 MPV 10.2 fL (7.4-10.4) 02/04/23 12:40 Gran % Cancelled 02/04/23 11:10 Neut % (Auto) 80.3 % 02/04/23 12:40 Lymph % (Auto) 10.6 % 02/04/23 12:40 [place] % (Auto) 7.6 % 02/04/23 12:40 Eos % (Auto) 0.7 % 02/04/23 12:40 Baso % (Auto) 0.6 % 02/04/23 12:40 Neut # (Auto) 6.75 10^3/uL (1.8-7.7) 02/04/23 12:40 Lymph # (Auto) 0.9 10^3/uL (0.8-4.8) 02/04/23 12:40 [place] # (Auto) 0.6 10^3/uL (0.2-0.9) 02/04/23 12:40 Eos # (Auto) 0.1 10^3/uL (0.0-0.8) 02/04/23 12:40 Baso # (Auto) 0.1 10^3/uL (0.0-0.1) 02/04/23 12:40 Absolute Gran (auto) Cancelled 02/04/23 11:10 Nucleated RBC % (auto) 0 % 02/04/23 12:40 Nucleated RBCs # 0.0 /100WBC 02/04/23 12:40 PT 17.10 SECONDS (12.1-14.9) H 02/04/23 11:10 INR 1.35 (0.8-1.2) H 02/04/23 11:10 Sodium 136 mmol/L (136-145) 02/04/23 11:10 Potassium 3.8 mmol/L (3.5-5.1) 02/04/23 11:10 Chloride 99 mmol/L (98-107) 02/04/23 11:10 Carbon Dioxide 24 mmol/L (22-29) 02/04/23 11:10 Anion Gap 16.8 (5-19) 02/04/23 11:10 BUN 9 mg/dL (8-23) 02/04/23 11:10 Creatinine 0.9 mg/dL (0.5-0.9) 02/04/23 11:10 GFR Calculation Not Reportable 02/04/23 11:10 Glucose 126 mg/dL (65-115) H 02/04/23 11:10 Calculated Osmolality 282 mOsm/kg (285-295) L 02/04/23 11:10 Calcium 9.4 mg/dL (8.5-10.5) 02/04/23 11:10 Total Bilirubin 1.0 mg/dL (0.15-1.2) 02/04/23 11:10 AST 28 U/L (0-32) 02/04/23 11:10 ALT 33 U/L (0-33) 02/04/23 11:10 Alkaline Phosphatase 118 U/L (35-105) H 02/04/23 11:10 Troponin T Baseline 17 ng/L (0-10) H 02/04/23 11:10 Troponin T 120 Minute 16.45 ng/L (0-10) H 02/04/23 13:20 Delta Troponin T -0.55 ABS# (0-10) L 02/04/23 13:20 NT-Pro-B Natriuret Pep 227 pg/mL (0-125) H 02/04/23 11:10 Total Protein 7.5 g/dL (6.6-8.7) 02/04/23 11:10 Albumin 4.0 g/dL (3.5-5.2) 02/04/23 11:10 Globulin 3.5 g/dL (1.3-4.6) 02/04/23 11:10 Urine Color Light yellow (Yellow) 02/04/23 12:55 Urine Appearance Hazy (CLEAR) A 02/04/23 12:55 Urine pH 6.5 (5-7) 02/04/23 12:55 Ur Specific [place] 1.010 (1.005-1.030) 02/04/23 12:55 Urine Protein Neg (Negative) 02/04/23 12:55 Urine Glucose (UA) Norm (Normal) 02/04/23 12:55 Urine Ketones Negative (Negative) 02/04/23 12:55 Urine Blood Neg (Negative) 02/04/23 12:55 Urine Nitrate Negative (Negative) 02/04/23 12:55 Urine Bilirubin Neg (Negative) 02/04/23 12:55 Urine Urobilinogen Neg mg/dL (Negative) 02/04/23 12:55 Ur Leukocyte Esterase Negative (Negative) 02/04/23 12:55 Urine RBC None /hpf (0-2) 02/04/23 12:55 Urine WBC None /hpf (0-5) 02/04/23 12:55 Ur Squamous Epith Cells 0-4 /hpf (0-5) H 02/04/23 12:55 Amorphous Sediment Not Reportable 02/04/23 12:55 Urine Bacteria Trace /hpf (NONE) 02/04/23 12:55 Urine Opiates Screen Negative ng/mL (Negative) 02/04/23 12:55 Ur Barbiturates Screen Negative ng/mL (Negative) 02/04/23 12:55 Ur Phencyclidine Scrn Negative ng/mL (Negative) 02/04/23 12:55 Ur Amphetamines Screen Negative ng/mL (Negative) 02/04/23 12:55 U Benzodiazepines Scrn Negative ng/mL (Negative) 02/04/23 12:55 Urine Cocaine Screen Negative ng/mL (Negative) 02/04/23 12:55 U Marijuana (THC) Screen Positive ng/mL (Negative) H 02/04/23 12:55 EKG Data EKG 1: I personally reviewed and interpreted this EKG as follows: EKG interpretation date: 02/04/23 EKG interpretation time: 11:10 Prior EKG tracings: not available for review Interpretation: EKG showed normal sinus rhythm with a ventricular rate of 93 bpm DC interval of 148 QRS duration of 81 QTc of 393, no ST-T wave changes. EKG 2: I personally reviewed and interpreted this EKG as follows: EKG interpretation date: 02/04/23 EKG interpretation time: 14:22 Prior EKG tracings: available for review Interpretation: EKG showed normal sinus rhythm with a ventricular rate of 72 bpm, DC interval 153, QRS duration 78, QTc of 407, no ST T wave changes. Discharge Plan Discharge Patient Disposition: Home Clinical Impression: Anxiety, Chest pain, non-cardiac Condition: Stable Prescriptions: No Action estradiol 0.025 mg/24 hr patch semiweekly 1 patch topical Q7D Rx Instructions: on fri pantoprazole [Protonix] 40 mg tablet,delayed release (DR/EC) 40 mg PO DAILY PRN (Reason: Heartburn) Rx Instructions: Must have follow-up for further refills ascorbic acid (vitamin C) 500 mg capsule 1,000 mg PO DAILY@18 atorvastatin 40 mg tablet 40 mg PO BEDTIME Qty: 90 3RF amitriptyline 75 mg tablet 75 mg PO BEDTIME ferrous gluconate 324 mg (38 mg iron) tablet 324 mg PO DAILY@18 medroxyprogesterone 2.5 mg tablet 2.5 mg PO BEDTIME levothyroxine 75 mcg tablet 75 mcg PO QAM lorazepam 0.5 mg tablet 0.25 - 0.5 mg PO DAILY PRN (Reason: Panic Attack(S)) Vitamin D3 25 mcg (1,000 unit) Tablet 2,000 unit PO QAM Adult Multivitamin Gummies 200 mcg Tablet,Chewable 2 tab PO QAM clopidogrel 75 mg tablet 75 mg PO QAM Rx Instructions: Must have follow-up for further refills aspirin 81 mg tablet,delayed release (DR/EC) 81 mg PO QAM metoprolol succinate 25 mg tablet extended release 24 hr 25 mg PO QAM ezetimibe 10 mg tablet 10 mg PO DAILY@2130 Rx Instructions: Must have follow-up for further refills Discharge Orders: Discharge ED (Routine); Ordered 02/04/23 Ordered By: Bg Feliciano Referrals: Andry Calvin MD [Primary Care Provider] - 1 week Patient Instructions: Chest Pain - Noncardiac, Anxiety (ED) Coding Level of Care Code ED Report Developer for Lashaun Jimenez
--- NOTE | 2023-02-04 11:44 | ECG_ITS ---
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
[2023-02-04 12:41] LABS: INR 1.35 (0.8-1.2)
[2023-02-04 12:45] LABS: Basophils # 0.1 10^3/uL (0.0-0.1); Basophils % 0.6 %; Eosinophils # 0.1 10^3/uL (0.0-0.8); Eosinophils % 0.7 %; Hematocrit 42.4 % (37.0-47.0); Hemoglobin 13.8 g/dL (11.5-15.3); Lymphocytes # 0.9 10^3/uL (0.8-4.8); Lymphocytes % 10.6 %; Mean Corpuscular HGB Conc 32.5 g/dL (30.0-36.0); Mean Corpuscular Hemoglobin 30.7 pg (28.0-34.0); Mean Corpuscular Volume 94.4 fl (81-99); Mean Platelet Volume 10.2 fL (7.4-10.4); Monocytes # 0.6 10^3/uL (0.2-0.9); Monocytes % 7.6 %; Neutrophils # 6.75 10^3/uL (1.8-7.7); Neutrophils % 80.3 %; Nucleated Red Blood Cells % 0 %; Platelet Count 278 10^3/cmm (130-400); Red Blood Count 4.49 10^6/uL (4.1-5.3); Red Cell Distribution Width 13.1 % (12.1-15.1); White Blood Count 8.4 10^3/uL (4.0-10.0)
[2023-02-04 12:59] LABS: Troponin(5th) Baseline 17 ng/L (0-10)
[2023-02-04 13:06] LABS: Alanine Aminotransferase 33 U/L (0-33); Alkaline Phosphatase 118 U/L (35-105); Blood Urea Nitrogen 9 mg/dL (8-23); Calcium 9.4 mg/dL (8.5-10.5); Carbon Dioxide 24 mmol/L (22-29); Chloride 99 mmol/L (98-107); Globulin 3.5 g/dL (1.3-4.6); Glucose 126 mg/dL (65-115); NT Pro B Type Natriuretic Pept 227 pg/mL (0-125); Osmolality Calculated 282 mOsm/kg (285-295); Sodium 136 mmol/L (136-145); Total Protein 7.5 g/dL (6.6-8.7)
[2023-02-04 13:10] LABS: Anion Gap 16.8 (5-19); Aspartate Amino Transferase 28 U/L (0-32); Potassium 3.8 mmol/L (3.5-5.1)
[2023-02-04 13:11] LABS: Add Urine Microscopic? YES; Amphetamines Screen Urine Negative (Negative); Barbiturates Screen Urine Negative (Negative); Benzodiazepines Screen Urine Negative (Negative); Bilirubin Urine Neg (Negative); Blood Urine Neg (Negative); Cocaine Screen Urine Negative (Negative); Glucose Urine UA Norm (Normal); Ketones Urine Negative (Negative); Leukocyte Esterase Urine Negative (Negative); Nitrate Urine Negative (Negative); Opiate Screen Urine Negative (Negative); PCP Screen Urine Negative (Negative); Protein Urine Neg (Negative); Squamous Epithelial Cell Urine 0-4 /hpf (0-5); THC Screen Urine Positive (Negative); Urine Appearance Hazy (CLEAR); Urine Color Light yellow (Yellow); Urobilinogen Urine Neg (Negative); pH Urine 6.5 (5-7)
[2023-02-04 13:12] LABS: Add Urine Culture? No; Bacteria Urine TRACE /hpf
--- NOTE | 2023-02-04 13:44 | ECG_ITS ---
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
[2023-02-04 13:53] LABS: Troponin 5 2HR 16.45 ng/L (0-10)
[2023-02-04 13:54] LABS: Troponin 5 2HR Delta -0.55 ABS# (0-10)
== END 2023-02-04 14:28 | disposition home or self-care (01) ==
PROVIDERS: Emergency Provider Emergency Medicine; PCP Family Medicine
DX: R07.89 Other chest pain (principal); F41.9 Anxiety disorder, unspecified; Z79.02 Long term (current) use of antithrombotics/antiplatelets; Z79.3 Long term (current) use of hormonal contraceptives; I10 Essential (primary) hypertension; Z87.891 Personal history of nicotine dependence
CPT/HCPCS: 36415; 80053; 80306; 81001; 83880; 84484; 85025; 85610; 93005; 99285

== ENCOUNTER 2023-02-06 08:08 | Emergency (ER) | payer MEDICARE, SELFPAY ==
[2023-02-06 08:14] VITALS: BP 152/87; PULSE 87; RESP 20; TEMP 36.3; O2SAT 100; BMI 24.0
--- NOTE | 2023-02-06 08:27 | XR_ITS ---
WS: [id number] XR chest 1V portable [id number] REASON FOR EXAM: chest pain FINDINGS: The chest is unchanged compared to 10/11/2020. Mild tortuosity and ectasia of the thoracic aorta. Normal heart size. Calcified granulomatous disease bilaterally. No acute pulmonary parenchymal or pleural abnormality. Bony thorax is intact without significant abnormality for age. XR/XR chest 1V portable [id number] IMPRESSION: No acute chest abnormality.
--- NOTE | 2023-02-06 08:28 | ECG_ITS ---
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
--- NOTE | 2023-02-06 08:30 | W.ED.SOB ---
Documented by User: VIET Kyle 02/06/23 10:11 HPI - SOB/Dyspnea General: Chief Complaint: Shortness of Breath/Dyspnea Stated Complaint: sob Time Seen by Provider: 02/06/23 08:15 Source: patient Mode of arrival: ambulatory Limitations: no limitations History of Present Illness: HPI Narrative: Patient is a 73-year-old female presents to ED today with a complaint of dyspnea. Patient states she has had symptoms for several days now. She was seen in our facility 2 days ago with complaints of some mild chest discomfort and shortness of breath. She received extensive ED work-up that overall was benign. Symptoms were thought to be secondary to anxiety. Patient states she just feels like she cannot take a deep breath. Symptoms do not seem to be worse with lying flat or exertion. Patient denies history of COPD/asthma/emphysema. She is a former smoker but quit in 1996. She does have a history of CAD with cardiac stenting about 2 years ago. She states her rf technician is Dr. Kothari. She states she has been using her lorazepam at night over the past 5 evenings as she feels like it helps with her nasal turbinate swelling and helps her breathe. Patient is not having any chest discomfort currently. She denies cough or other URI-like symptoms. MD elicited complaint: shortness of breath Onset (ago): day(s) Timing: intermittent Severity: moderate Exacerbating factors: nothing Relieving factors: nothing Associated symptoms: Deny abdominal pain, chest congestion, chest pain, dizziness, extremity pain, fever(s), hemoptysis, lightheadedness, nausea, orthopnea, palpitations, syncope or vomiting Treatment prior to arrival: none Related Data: Home oxygen amount: none Review of Systems Const: Denies: fever(s), chills, body aches, fatigue or malaise Eyes: Denies: change in vision, blurry vision, photophobia, floaters or seeing flashes Card: Denies: chest pain, palpitations, irregular heart rhythm, edema, swelling of feet/ankles, lightheadedness, syncope, pre-syncope, orthopnea, leg pain with exertion or acrocyanosis Resp: Reports: dyspnea; Denies: productive cough, non-productive cough, wheezing, pain on inspiration, change in phlegm color, hemoptysis or chest congestion GI: Reports: constipation (x 2 days); Denies: abdominal pain, nausea, vomiting or diarrhea : Denies: flank pain, difficulty voiding, dysuria, urinary frequency or urinary urgency Musc: Denies: neck pain, back pain, extremity pain or joint pain Skin/Breast: Denies: rash Neuro: Denies: headache(s), numbness in extremities, weakness in extremities, sensory changes, difficulty walking, dizziness or confusion Psych: Reports: anxiety PFSH ED PFSH: Medical History Essential hypertension Hypothyroidism Insomnia Surgical History History of carpal tunnel surgery History of knee surgery Stented coronary artery Family History Other Diabetes Hypertension Stroke Social History Smoking and tobacco status: former smoker Quit status (tobacco): has quit using tobacco Year quit tobacco: 1996 Former quit date comment: 1.5 PPD X 30 YEARS Alcohol intake: never Physical Exam Const: COMMON NORMALS: no acute distress, average body habitus, patient oriented x3, no limitations, healthy appearing, alert and well nourished GENERAL APPEARANCE: cooperative and anxious ORIENTATION/CONSCIOUSNESS: Yes awake, Yes oriented to person, Yes oriented to place and Yes oriented to time HENMT: COMMON NORMALS: normocephalic and atraumatic HEAD & SCALP: normal to inspection, normocephalic and atraumatic Neck/C-Spine: COMMON NORMALS: full ROM, no lymphadenopathy, supple and no meningeal signs GENERAL: Yes normal visual inspection, No anterior neck swelling and No submandibular swelling Chest: COMMONS NORMALS: normal inspection of the chest and normal palpation of entire chest wall Resp: COMMON NORMALS: normal respiratory effort, No retractions, No use of accessory muscles and clear to auscultation bilaterally EFFORT & INSPECTION: Yes able to speak in complete sentences, Yes tachypneic, No labored, No grunting, No stridor, No Actively coughing, No retractions and No uses accessory muscles AUSCULTATION: clear to auscultation bilaterally Cardio: COMMON NORMALS: regular rate and regular rhythm RATE: regular rate RHYTHM: regular rhythm GI: COMMON NORMALS: Normal to inspection, nondistended, normoactive bowel sounds present, Soft to palpation, non-tender, No hepatosplenomegaly present and no masses PALPATION: Yes Soft to palpation and Yes No hepatosplenomegaly present Back/Pelvis: COMMON NORMALS: thoracic and lumbar spine normal to inspection, no thoracic nor lumbar tenderness and thoraco-lumbar ROM normal Extremity: COMMON NORMALS: normal to inspection, full ROM, capillary refill normal, no joint enlargement, no clubbing, cyanosis or edema, no calf tenderness and no pedal edema NARRATIVE EXTREMITY EXAM: bilateral distal feet are cool to the touch but DP/PT pulses are easily palpable Neuro: ZAHEER COMA SCALE: document GCS findings Zaheer coma scale eye opening: Spontaneous [place] coma scale verbal response: Orientated [place] coma scale motor response: Obey commands Zaheer coma scale total score: 15 COMMON NORMALS: patient oriented x3, moves all extremities, no focal motor deficits and no sensory deficits noted SENSORIUM/ORIENTATION: Yes alert, Yes oriented to person, Yes oriented to place and Yes oriented to time MENINGEAL SIGNS: Yes no meningeal signs Skin: COMMON NORMALS: no rashes or lesions noted GENERAL SKIN EXAM: no rashes or lesions noted Course Vital Signs: Vital signs: Vital Signs Temperature 97.4 F L 02/06/23 08:14 Pulse Rate 72 02/06/23 09:44 Respiratory Rate 17 02/06/23 09:44 Blood Pressure 159/85 02/06/23 09:44 Pulse Oximetry 100 02/06/23 09:44 Oxygen Delivery Me thod 02/06/23 09:05 MDM - SOB/Dyspnea Medical Decision Making Patient's work-up here is again benign. Her troponin is 18. It was 17 yesterday with a negative delta. This does not need to be repeated. Her D-dimer is normal. CXR is normal. She states she does feel better after PO Ativan. During re-examination patient's significant other tells me all of this started 10 days ago after patient accidentally clicked BID on an online horse auction. 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 Given that additional information I certainly think her symptoms are attributed to anxiety. She does have lorazepam at home she can take as needed. Recommend she follow-up with Dr. Calvin early next week to discuss possible other options for her anxiety. Lab Data 02/06/23 08:46 02/06/23 08:46 Labs/Radiology: Radiology Impressions Chest X-Ray 02/06/23 08:27 IMPRESSION: No acute chest abnormality. Laboratory Results WBC 7.7 10^3/uL (4.0-10.0) 02/06/23 08:46 RBC 4.72 10^6/uL (4.1-5.3) 02/06/23 08:46 Hgb 14.9 g/dL (11.5-15.3) 02/06/23 08:46 Hct 44.2 % (37.0-47.0) 02/06/23 08:46 MCV 93.6 fl (81-99) 02/06/23 08:46 MCH 31.6 pg (28.0-34.0) 02/06/23 08:46 MCHC 33.7 g/dL (30.0-36.0) 02/06/23 08:46 RDW 13.1 % (12.1-15.1) 02/06/23 08:46 Plt Count 298 10^3/cmm (130-400) 02/06/23 08:46 MPV 10.0 fL (7.4-10.4) 02/06/23 08:46 Neut % (Auto) 76.3 % 02/06/23 08:46 Lymph % (Auto) 14.9 % 02/06/23 08:46 [place] % (Auto) 6.2 % 02/06/23 08:46 Eos % (Auto) 1.6 % 02/06/23 08:46 Baso % (Auto) 0.6 % 02/06/23 08:46 Neut # (Auto) 5.88 10^3/uL (1.8-7.7) 02/06/23 08:46 Lymph # (Auto) 1.2 10^3/uL (0.8-4.8) 02/06/23 08:46 [place] # (Auto) 0.5 10^3/uL (0.2-0.9) 02/06/23 08:46 Eos # (Auto) 0.1 10^3/uL (0.0-0.8) 02/06/23 08:46 Baso # (Auto) 0.1 10^3/uL (0.0-0.1) 02/06/23 08:46 Nucleated RBC % (auto) 0 % 02/06/23 08:46 Nucleated RBCs # 0.0 /100WBC 02/06/23 08:46 D-Dimer 0.42 ug/mIFEU (0-0.59) 02/06/23 08:46 Sodium 136 mmol/L (136-145) 02/06/23 08:46 Potassium 3.8 mmol/L (3.5-5.1) 02/06/23 08:46 Chloride 101 mmol/L (98-107) 02/06/23 08:46 Carbon Dioxide 23 mmol/L (22-29) 02/06/23 08:46 Anion Gap 15.8 (5-19) 02/06/23 08:46 BUN 8 mg/dL (8-23) 02/06/23 08:46 Creatinine 0.9 mg/dL (0.5-0.9) 02/06/23 08:46 GFR Calculation Not Reportable 02/06/23 08:46 Glucose 103 mg/dL (65-115) 02/06/23 08:46 Calculated Osmolality 281 mOsm/kg (285-295) L 02/06/23 08:46 Calcium 9.0 mg/dL (8.5-10.5) 02/06/23 08:46 Total Bilirubin 1.1 mg/dL (0.15-1.2) 02/06/23 08:46 AST 20 U/L (0-32) 02/06/23 08:46 ALT 26 U/L (0-33) 02/06/23 08:46 Alkaline Phosphatase 100 U/L (35-105) 02/06/23 08:46 Troponin T Baseline 18 ng/L (0-10) H 02/06/23 08:46 Total Protein 7.1 g/dL (6.6-8.7) 02/06/23 08:46 Albumin 3.8 g/dL (3.5-5.2) 02/06/23 08:46 Globulin 3.3 g/dL (1.3-4.6) 02/06/23 08:46 Discharge Plan Discharge Patient Disposition: Home Clinical Impression: Anxiety Dyspnea Qualifiers: Dyspnea type: unspecified Qualified Code(s): R06.00 - Dyspnea, unspecified Condition: Stable Prescriptions: No Action estradiol 0.025 mg/24 hr patch semiweekly 1 patch topical Q7D Rx Instructions: on fri pantoprazole [Protonix] 40 mg tablet,delayed release (DR/EC) 40 mg PO DAILY PRN (Reason: Heartburn) Rx Instructions: Must have follow-up for further refills ascorbic acid (vitamin C) 500 mg capsule 1,000 mg PO DAILY@18 atorvastatin 40 mg tablet 40 mg PO BEDTIME Qty: 90 3RF amitriptyline 75 mg tablet 75 mg PO BEDTIME ferrous gluconate 324 mg (38 mg iron) tablet 324 mg PO DAILY@18 medroxyprogesterone 2.5 mg tablet 2.5 mg PO BEDTIME levothyroxine 75 mcg tablet 75 mcg PO QAM lorazepam 0.5 mg tablet 0.25 - 0.5 mg PO DAILY PRN (Reason: Panic Attack(S)) cholecalciferol (vitamin D3) [Vitamin D3] 25 mcg (1,000 unit) Tablet 2,000 unit PO QAM Adult Multivitamin Gummies 200 mcg Tablet,Chewable 2 tab PO QAM clopidogrel 75 mg tablet 75 mg PO QAM Rx Instructions: Must have follow-up for further refills aspirin 81 mg tablet,delayed release (DR/EC) 81 mg PO QAM metoprolol succinate 25 mg tablet extended release 24 hr 25 mg PO QAM ezetimibe 10 mg tablet 10 mg PO DAILY@2130 Rx Instructions: Must have follow-up for further refills Discharge Orders: Discharge ED (Routine); Ordered 02/06/23 Ordered By: Ashley Reynaga Referrals: Andry Calvin MD [Primary Care Provider] - Coding Level of Care Code ED Military Personnel Specialist for Chg Fwd Documented by User: Andrea Dejesus DO 02/06/23 10:34 HPI - SOB/Dyspnea General: Chief Complaint: Shortness of Breath/Dyspnea Stated Complaint: sob Time Seen by Provider: 02/06/23 08:15 PFSH ED PFSH: Medical History Essential hypertension Hypothyroidism Insomnia Surgical History History of carpal tunnel surgery History of knee surgery Stented coronary artery Family History Other Diabetes Hypertension Stroke Social History Smoking and tobacco status: former smoker Quit status (tobacco): has quit using tobacco Year quit tobacco: 1996 Former quit date comment: 1.5 PPD X 30 YEARS Alcohol intake: never Physical Exam Neuro: ZAHEER COMA SCALE: document GCS findings [place] coma scale total score: 15 Course Vital Signs: Vital signs: Vital Signs Temperature 97.4 F L 02/06/23 08:14 Pulse Rate 72 02/06/23 09:44 Respiratory Rate 17 02/06/23 09:44 Blood Pressure 159/85 02/06/23 09:44 Pulse Oximetry 100 02/06/23 09:44 Oxygen Delivery Me thod 02/06/23 09:05 MDM - SOB/Dyspnea Medical Decision Making Patient's work-up here is again benign. Her troponin is 18. It was 17 yesterday with a negative delta. This does not need to be repeated. Her D-dimer is normal. CXR is normal. She states she does feel better after PO Ativan. During re-examination patient's significant other tells me all of this started 10 days ago after patient accidentally clicked BID on an online horse auction. 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 Given that additional information I certainly think her symptoms are attributed to anxiety. She does have lorazepam at home she can take as needed. Recommend she follow-up with Dr. Calvin early next week to discuss possible other options for her anxiety. Chart reviewed and patient discussed with midlevel. Agree with assessment and plan. Lab Data 02/06/23 08:46 02/06/23 08:46 Labs/Radiology: Radiology Impressions Chest X-Ray 02/06/23 08:27 IMPRESSION: No acute chest abnormality. Laboratory Results WBC 7.7 10^3/uL (4.0-10.0) 02/06/23 08:46 RBC 4.72 10^6/uL (4.1-5.3) 02/06/23 08:46 Hgb 14.9 g/dL (11.5-15.3) 02/06/23 08:46 Hct 44.2 % (37.0-47.0) 02/06/23 08:46 MCV 93.6 fl (81-99) 02/06/23 08:46 MCH 31.6 pg (28.0-34.0) 02/06/23 08:46 MCHC 33.7 g/dL (30.0-36.0) 02/06/23 08:46 RDW 13.1 % (12.1-15.1) 02/06/23 08:46 Plt Count 298 10^3/cmm (130-400) 02/06/23 08:46 MPV 10.0 fL (7.4-10.4) 02/06/23 08:46 Neut % (Auto) 76.3 % 02/06/23 08:46 Lymph % (Auto) 14.9 % 02/06/23 08:46 [place] % (Auto) 6.2 % 02/06/23 08:46 Eos % (Auto) 1.6 % 02/06/23 08:46 Baso % (Auto) 0.6 % 02/06/23 08:46 Neut # (Auto) 5.88 10^3/uL (1.8-7.7) 02/06/23 08:46 Lymph # (Auto) 1.2 10^3/uL (0.8-4.8) 02/06/23 08:46 [place] # (Auto) 0.5 10^3/uL (0.2-0.9) 02/06/23 08:46 Eos # (Auto) 0.1 10^3/uL (0.0-0.8) 02/06/23 08:46 Baso # (Auto) 0.1 10^3/uL (0.0-0.1) 02/06/23 08:46 Nucleated RBC % (auto) 0 % 02/06/23 08:46 Nucleated RBCs # 0.0 /100WBC 02/06/23 08:46 D-Dimer 0.42 ug/mIFEU (0-0.59) 02/06/23 08:46 Sodium 136 mmol/L (136-145) 02/06/23 08:46 Potassium 3.8 mmol/L (3.5-5.1) 02/06/23 08:46 Chloride 101 mmol/L (98-107) 02/06/23 08:46 Carbon Dioxide 23 mmol/L (22-29) 02/06/23 08:46 Anion Gap 15.8 (5-19) 02/06/23 08:46 BUN 8 mg/dL (8-23) 02/06/23 08:46 Creatinine 0.9 mg/dL (0.5-0.9) 02/06/23 08:46 GFR Calculation Not Reportable 02/06/23 08:46 Glucose 103 mg/dL (65-115) 02/06/23 08:46 Calculated Osmolality 281 mOsm/kg (285-295) L 02/06/23 08:46 Calcium 9.0 mg/dL (8.5-10.5) 02/06/23 08:46 Total Bilirubin 1.1 mg/dL (0.15-1.2) 02/06/23 08:46 AST 20 U/L (0-32) 02/06/23 08:46 ALT 26 U/L (0-33) 02/06/23 08:46 Alkaline Phosphatase 100 U/L (35-105) 02/06/23 08:46 Troponin T Baseline 18 ng/L (0-10) H 02/06/23 08:46 Total Protein 7.1 g/dL (6.6-8.7) 02/06/23 08:46 Albumin 3.8 g/dL (3.5-5.2) 02/06/23 08:46 Globulin 3.3 g/dL (1.3-4.6) 02/06/23 08:46 Discharge Plan Discharge Patient Disposition: Home Clinical Impression: Anxiety Dyspnea Qualifiers: Dyspnea type: unspecified Qualified Code(s): R06.00 - Dyspnea, unspecified Condition: Stable Prescriptions: No Action estradiol 0.025 mg/24 hr patch semiweekly 1 patch topical Q7D Rx Instructions: on fri pantoprazole [Protonix] 40 mg tablet,delayed release (DR/EC) 40 mg PO DAILY PRN (Reason: Heartburn) Rx Instructions: Must have follow-up for further refills ascorbic acid (vitamin C) 500 mg capsule 1,000 mg PO DAILY@18 atorvastatin 40 mg tablet 40 mg PO BEDTIME Qty: 90 3RF amitriptyline 75 mg tablet 75 mg PO BEDTIME ferrous gluconate 324 mg (38 mg iron) tablet 324 mg PO DAILY@18 medroxyprogesterone 2.5 mg tablet 2.5 mg PO BEDTIME levothyroxine 75 mcg tablet 75 mcg PO QAM lorazepam 0.5 mg tablet 0.25 - 0.5 mg PO DAILY PRN (Reason: Panic Attack(S)) cholecalciferol (vitamin D3) [Vitamin D3] 25 mcg (1,000 unit) Tablet 2,000 unit PO QAM Adult Multivitamin Gummies 200 mcg Tablet,Chewable 2 tab PO QAM clopidogrel 75 mg tablet 75 mg PO QAM Rx Instructions: Must have follow-up for further refills aspirin 81 mg tablet,delayed release (DR/EC) 81 mg PO QAM metoprolol succinate 25 mg tablet extended release 24 hr 25 mg PO QAM ezetimibe 10 mg tablet 10 mg PO DAILY@2130 Rx Instructions: Must have follow-up for further refills Discharge Orders: Discharge ED (Routine); Ordered 02/06/23 Ordered By: Ashley Reynaga Referrals: Andry Calvin MD [Primary Care Provider] - Coding Level of Care Code ED Military Personnel Specialist for Lashaun Jimenez
[2023-02-06 08:52] LABS: Basophils # 0.1 10^3/uL (0.0-0.1); Basophils % 0.6 %; Eosinophils # 0.1 10^3/uL (0.0-0.8); Eosinophils % 1.6 %; Hematocrit 44.2 % (37.0-47.0); Hemoglobin 14.9 g/dL (11.5-15.3); Lymphocytes # 1.2 10^3/uL (0.8-4.8); Lymphocytes % 14.9 %; Mean Corpuscular HGB Conc 33.7 g/dL (30.0-36.0); Mean Corpuscular Hemoglobin 31.6 pg (28.0-34.0); Mean Corpuscular Volume 93.6 fl (81-99); Monocytes # 0.5 10^3/uL (0.2-0.9); Monocytes % 6.2 %; Neutrophils # 5.88 10^3/uL (1.8-7.7); Neutrophils % 76.3 %; Nucleated Red Blood Cells % 0 %; Platelet Count 298 10^3/cmm (130-400); Red Blood Count 4.72 10^6/uL (4.1-5.3); Red Cell Distribution Width 13.1 % (12.1-15.1); White Blood Count 7.7 10^3/uL (4.0-10.0)
[2023-02-06] MEDS: LORazepam 0.5 mg Tablet PO (09:02)
[2023-02-06 09:05] VITALS: BP 144/81; PULSE 84; RESP 16; O2SAT 100
[2023-02-06 09:13] LABS: Alanine Aminotransferase 26 U/L (0-33); Albumin Level 3.8 g/dL (3.5-5.2); Alkaline Phosphatase 100 U/L (35-105); Anion Gap 15.8 (5-19); Aspartate Amino Transferase 20 U/L (0-32); Blood Urea Nitrogen 8 mg/dL (8-23); Carbon Dioxide 23 mmol/L (22-29); Chloride 101 mmol/L (98-107); Globulin 3.3 g/dL (1.3-4.6); Glucose 103 mg/dL (65-115); Osmolality Calculated 281 mOsm/kg (285-295); Potassium 3.8 mmol/L (3.5-5.1); Sodium 136 mmol/L (136-145); Total Bilirubin 1.1 mg/dL (0.15-1.2); Total Protein 7.1 g/dL (6.6-8.7)
[2023-02-06 09:15] LABS: Troponin(5th) Baseline 18 ng/L (0-10)
[2023-02-06 09:23] LABS: D Dimer 0.42 ug/mIFEU (0-0.59)
[2023-02-06 09:44] VITALS: BP 159/85; PULSE 72; RESP 17; O2SAT 100
== END 2023-02-06 09:45 | disposition home or self-care (01) ==
PROVIDERS: Emergency Provider Physician Assistant; PCP Family Medicine
DX: F41.9 Anxiety disorder, unspecified (principal); R06.00 Dyspnea, unspecified; E03.9 Hypothyroidism, unspecified; Z79.82 Long term (current) use of aspirin; Z87.891 Personal history of nicotine dependence; Z95.5 Presence of coronary angioplasty implant and graft
CPT/HCPCS: 36415; 71045; 80053; 84484; 85025; 85378; 93005; 99285

== ENCOUNTER 2023-08-20 13:40 | Outpatient (CLI) | payer MEDICARE, SELFPAY ==
--- NOTE | 2023-08-20 | MM_ITS ---
WS: [id number] BILATERAL 3D TOMOSYNTHESIS DIGITAL SCREENING MAMMOGRAPHY WITH CAD CLINICAL INFORMATION: ANNUAL SCREENING HISTORY: Screening mammogram. No current complaints. COMPARISON: 2021 TECHNIQUE: Bilateral CC and MLO views. FINDINGS: Scattered fibroglandular densities bilaterally. Incidental punctate and lucent centered calcification s. Partially obscured nodular density upper outer quadrants bilaterally largest on the LEFT measuring 2.1 cm. This is increased in size compared to 2022 where it measured 1.4 cm. Considering increase in size recommend further evaluation with LEFT breast diagnostic mammography and ultrasound. RIGHT breast is unchanged and unremarkable. IMPRESSION: MM/[place] [id number] BI-RADS: 0-Incomplete: Need additional imaging evaluation FOLLOW UP: Need Additional Imaging Recommend LEFT breast diagnostic mammography and ultrasound.
== END 2023-08-20 13:41 | disposition home or self-care (01) ==
PROVIDERS: PCP Family Medicine; Visit Provider Family Medicine
DX: Z12.2 Encounter for screening for malignant neoplasm of respiratory organs (principal)
CPT/HCPCS: 77063; 77067

== ENCOUNTER → 2023-09-08 13:01 | Outpatient (BNVA) | payer MEDICARE, SELFPAY | PROVIDERS: PCP Family Medicine; Visit Provider Internal Medicine | DX: Z95.5 Presence of coronary angioplasty implant and graft (principal); I10 Essential (primary) hypertension; E78.49 Other hyperlipidemia; I73.9 Peripheral vascular disease, unspecified; Z87.891 Personal history of nicotine dependence | CPT/HCPCS: 99214 ==

== ENCOUNTER 2023-10-02 10:58 | Outpatient (CLI) | payer MEDICARE, SELFPAY ==
--- NOTE | 2023-10-02 11:04 | MM_ITS ---
WS: [id number] LEFT 3D TOMOSYNTHESIS DIGITAL MAMMOGRAPHY WITH CAD CLINICAL INFORMATION: ABNORMAL MAMMO HISTORY: Additional views COMPARISON: 08/20/2023 TECHNIQUE: 3 views of the left breast were obtained. FINDINGS: Scattered fibroglandular densities of the left breast. Stable partially obscured ovoid density upper outer quadrant LEFT breast measuring 2.4 cm. No other significant change compared to previous. Ultras ound is pending. ULTRASOUND BREAST LEFT TECHNIQUE: Ultrasound left breast focused area of concern. CLINICAL INFORMATION: ABNORMAL MAMMO FINDINGS: Ultrasound LEFT breast at the 12 to 3 o'clock position. At the 1 o'clock position, 1 cm from the nipp le, ovoid simple cyst measuring 2.5 x 1.9 x 1.5 cm At the 2 o'clock position 1 cm from the nipple additional simple cyst measuring 0.9 x 0.9 x 0.9 cm. N o other suspicious findings. Incidental small cluster of benign cysts in the 3 o'clock position. IMPRESSION: MM/[place] [id number] BI-RADS: 2-Benign FOLLOW UP: 1 Year Follow-up Recommend return to annual screening mammography.
== END 2023-10-02 10:59 | disposition home or self-care (01) ==
LOC: RAD 10:58
PROVIDERS: PCP Family Medicine; Visit Provider Family Medicine
DX: R92.2 Inconclusive mammogram (principal); N60.02 Solitary cyst of left breast
CPT/HCPCS: 76642; 77061; G0279

== ENCOUNTER → 2024-01-01 14:04 | Outpatient (BNVA) | payer MEDICARE, SELFPAY | PROVIDERS: PCP Family Medicine; Referring Provider Family Medicine; Visit Provider Nurse Practitioner | DX: M17.0 Bilateral primary osteoarthritis of knee; S89.92XA Unspecified injury of left lower leg, initial encounter; W01.0XXA Fall on same level from slipping, tripping and stumbling without subsequent striking against object, initial encounter | CPT/HCPCS: 73560; 73565; 99204 ==

== ENCOUNTER → 2024-06-08 13:09 | Outpatient (BNVA) | payer MEDICARE, SELFPAY | PROVIDERS: PCP Family Medicine; Visit Provider Internal Medicine | DX: Z95.5 Presence of coronary angioplasty implant and graft (principal); I10 Essential (primary) hypertension; F17.200 Nicotine dependence, unspecified, uncomplicated; E78.49 Other hyperlipidemia; I73.9 Peripheral vascular disease, unspecified | CPT/HCPCS: 99214 ==

== ENCOUNTER 2024-10-28 14:00 | Outpatient (CLI) | payer MEDICARE, SELFPAY ==
--- NOTE | 2024-10-28 14:02 | MM_ITS ---
WS: [id number] BILATERAL SCREENING DIGITAL TOMOSYNTHESIS MAMMOGRAM WITH CAD HISTORY: SCREENING COMPARISON: 10/02/2023, 08/20/2023, 07/04/2022 Bilateral CC and MLO views with tomosynthesis and synthetic mammography submitted. Computer aided det ection analyzed. Breast composition: The breasts are heterogeneously dense, which may obscure small masses. No suspici ous masses, microcalcifications or architectural distortion. Partially obscured masses in the upper o uter quadrants of each breast are stable. There are also calcifications which do not appear to have p rogressed significantly over the last several examinations. MM/MM scr BI tomosynthesis [id number] IMPRESSION: BI-RADS: 2 - Benign FOLLOW UP: 1 Year Follow-up
== END 2024-10-28 14:01 | disposition home or self-care (01) ==
PROVIDERS: PCP Family Medicine; Visit Provider Family Medicine
DX: Z12.31 Encounter for screening mammogram for malignant neoplasm of breast (principal); R92.333 Mammographic heterogeneous density, bilateral breasts; N63.21 Unspecified lump in the left breast, upper outer quadrant; N63.11 Unspecified lump in the right breast, upper outer quadrant; R92.1 Mammographic calcification found on diagnostic imaging of breast
CPT/HCPCS: 77063; 77067

== ENCOUNTER → 2025-03-08 15:28 | Outpatient (BNVA) | payer MEDICARE, SELFPAY | PROVIDERS: PCP Family Medicine; Visit Provider Internal Medicine | DX: I10 Essential (primary) hypertension (principal); E78.5 Hyperlipidemia, unspecified; I73.9 Peripheral vascular disease, unspecified; Z95.5 Presence of coronary angioplasty implant and graft; Z87.891 Personal history of nicotine dependence | CPT/HCPCS: 99213 ==

== ENCOUNTER 2025-10-11 09:42 | Emergency (ER) | payer MEDICARE, SELFPAY ==
--- NOTE | 2025-10-11 09:45 | XRR_ITS ---
PROCEDURE INFORMATION: Exam: XR Left Knee Exam date and time: 10/11/2025 9:48 AM Age: 75 years old Clinical indication: Pain; Knee; Left TECHNIQUE: Imaging protocol: Radiologic exam of the left knee. Views: 3 views. COMPARISON: CR XR knee LT 3V* [id number] 04/27/2024 2:27 PM FINDINGS: Bones/joints: Three views were obtained. The bones and joints are unremarkable. There is no indication of fracture or foreign body. Soft tissues: No soft tissue abnormalities are present. XR/XR knee LT 3V* [id number] IMPRESSION: Unremarkable left knee series.
[2025-10-11 09:50] VITALS: BP 124/88; PULSE 100; RESP 18; TEMP 36.7; O2SAT 98; BMI 23.0
--- NOTE | 2025-10-11 10:06 | W.ED.EXTPRO ---
HPI - Extremity Problem General: Chief complaint: Extremity Problem,Nontraumatic Stated complaint: L knee pain Time Seen by Provider: 10/11/25 09:44 History of Present Illness: 75-year-old female presents to the emergency room complaining of left knee pain that began the day after she been working outside she felt like she strained her knee she followed up with an outside orthopedist they wanted her to have an MRI but insisted that she have it scheduled out of town which she is not able to logistically do because of her 's health. No other injuries no fever sweats or chills no chest pain shortness of breath or swelling in the leg Related Data Home Medications ?Medication ?Instructions ?Recorded ?Confirmed amitriptyline 75 mg tablet 75 mg PO BEDTIME 10/11/20 09/02/25 ferrous gluconate 324 mg (38 mg 324 mg PO DAILY@10/11/20 09/02/25 iron) tablet estradiol 0.025 mg/24 hr 1 patch topical Q7D 06/19/21 09/02/25 semiweekly transdermal patch ascorbic acid (vitamin C) 500 mg 1,000 mg PO DAILY@09/25/22 09/02/25 capsule cholecalciferol (vitamin D3) 25 2,000 unit PO QAM 02/04/23 09/02/25 mcg (1,000 unit) tablet (Vitamin D3) levothyroxine 75 mcg tablet 75 mcg PO QAM 02/04/23 09/02/25 medroxyprogesterone 2.5 mg tablet 2.5 mg PO BEDTIME 02/04/23 09/02/25 multivitamin with minerals-folic 2 tab PO QAM 02/04/23 09/02/25 acid 200 mcg chewable tablet (Adult Multivitamin Gummies) citalopram 10 mg tablet 10 mg PO DAILY 09/08/23 09/02/25 Previous Rx's ?Medication ?Instructions ?Recorded clopidogrel 75 mg tablet See Rx Instructions .Route 10/11/24 .COMPLEX #90 tabs ezetimibe 10 mg tablet See Rx Instructions .Route 11/05/24 .COMPLEX #90 tabs atorvastatin 40 mg tablet See Rx Instructions .Route 11/15/24 .COMPLEX #90 tabs metoprolol succinate 25 mg See Rx Instructions .Route 07/22/25 tablet,extended release 24 hr .COMPLEX #90 tabs diclofenac sodium 75 mg 75 mg PO Q12H PRN pain #20 tabs 10/11/25 tablet,delayed release Allergies Allergy/AdvReac Type Severity Reaction Status Date / Time No Known Allergies Allergy Verified 09/02/25 11:56 Review of Systems Musc: Reports: joint pain PFSH ED PFSH: Medical History Bilateral primary osteoarthritis of knee Essential hypertension Hypothyroidism Insomnia Surgical History Stented coronary artery History of knee surgery History of carpal tunnel surgery Family History Other Diabetes Hypertension Stroke Social History Smoking and tobacco/nicotine status: never used tobacco/nicotine Quit status (tobacco/nicotine): has quit using Year quit tobacco: 1996 Former quit date comment: 1.5 PPD X 30 YEARS Alcohol intake: never Physical Exam Extremity: OTHER: Examination left knee no ligamentous instability or laxity. No swelling no joint effusion no deformity or varus or valgus stress Course Vital Signs: Vital signs: Vital Signs Temperature 98.1 F 10/11/25 09:50 Pulse Rate 100 10/11/25 09:50 Respiratory Rate 18 10/11/25 09:50 Blood Pressure 124/88 10/11/25 09:50 Pulse Oximetry 98 10/11/25 09:50 Oxygen Delivery Me thod Room Air 10/11/25 09:50 MDM - Extremity (Nontraumatic) Medical Decision Making X-ray is negative no acute fractures. Will discharge patient home she had been seeing another orthopedic physician they wanted her to get an MRI in [place] she does not want to drive there offered her referral to one of our local orthopedic surgeons so she can get the MRI locally. Patient wishes to do this. I also gave her diclofenac to use as needed she had been using Toradol but it was hard on her stomach she said she could not tolerate it. Advised her does not take the Toradol while she is taking diclofenac. We were able to give her a time and date for her appointment at the time of discharge. Lab Data Radiology Impressions Knee X-Ray 10/11/25 09:45 IMPRESSION: Unremarkable left knee series. All radiology interpretation(s) finalized by discharge ED provider radiology interpretation(s): X-ray left knee no acute fractures Discharge Plan Discharge Patient Disposition: Home Clinical Impression: Left knee sprain Condition: Stable Prescriptions: New diclofenac sodium 75 mg tablet,delayed release (DR/EC) 75 mg PO Q12H PRN (Reason: pain) Qty: 20 0RF No Action estradiol 0.025 mg/24 hr patch semiweekly 1 patch topical Q7D Rx Instructions: on fri Daptacel (DTaP Pediatric) (PF) 15-10-5 Lf-mcg-Lf/0.5mL suspension 0.5 ml IM ONCE Qty: 0.5 0RF ascorbic acid (vitamin C) 500 mg capsule 1,000 mg PO DAILY@18 citalopram 10 mg tablet 10 mg PO DAILY clopidogrel 75 mg tablet See Rx Instructions .ROUTE .COMPLEX Qty: 90 3RF Dose Instruction: TAKE 1 TABLET BY MOUTH EVERY DAY in THE morning Rx Instructions: TAKE 1 TABLET BY MOUTH EVERY DAY in THE morning ezetimibe 10 mg tablet See Rx Instructions .ROUTE .COMPLEX Qty: 90 3RF Dose Instruction: TAKE 1 TABLET BY MOUTH EVERY DAY at 9:30pm Rx Instructions: TAKE 1 TABLET BY MOUTH EVERY DAY at 9:30pm atorvastatin 40 mg tablet See Rx Instructions .ROUTE .COMPLEX Qty: 90 3RF Dose Instruction: TAKE 1 TABLET BY MOUTH AT BEDTIME Rx Instructions: TAKE 1 TABLET BY MOUTH AT BEDTIME metoprolol succinate 25 mg tablet extended release 24 hr See Rx Instructions .ROUTE .COMPLEX Qty: 90 3RF Dose Instruction: TAKE 1 TABLET BY MOUTH EVERY DAY in THE morning Rx Instructions: TAKE 1 TABLET BY MOUTH EVERY DAY in THE morning amitriptyline 75 mg tablet 75 mg PO BEDTIME ferrous gluconate 324 mg (38 mg iron) tablet 324 mg PO DAILY@18 medroxyprogesterone 2.5 mg tablet 2.5 mg PO BEDTIME levothyroxine 75 mcg tablet 75 mcg PO QAM cholecalciferol (vitamin D3) [Vitamin D3] 25 mcg (1,000 unit) Tablet 2,000 unit PO QAM Adult Multivitamin Gummies 200 mcg Tablet,Chewable 2 tab PO QAM Discharge Orders: Discharge ED (Routine); Ordered 10/11/25 Ordered By: Andrea Dejesus Referrals: Andry Calvin MD [Primary Care Provider, Family Practice] Discharge Diet: Usual diet Discharge Activity: Limit activity as instructed Patient Instructions: Opioid Safety, Pain Management, Patient Portal & Kevin Instructions Activity Restrictions/Additional Instructions: [facility]. It is very important that you follow up as instructed or that you return to the Emergency Department should you have concerns or if your condition changes or worsens in any way. Emergency department visits are focused on emergent conditions, in some cases you may require further evaluation on an outpatient basis. You were seen in the emergency room with complaints of knee pain this been ongoing for the last 2-1/2 weeks. X-rays not show any acute fractures. Recommend minimizing activity with squatting bending and heavy lifting. Will give you prescription for diclofenac. Case management is making arrangements for you to follow-up with the Ortho clinic here at [facility]. (Please note that included in your discharge packet is information concerning opioid safety and pain management. This information is given to all patients were discharged from the ER regardless of their discharge diagnosis or the medicines they usually take or are prescribed.) Print Language: Danish Coding Level of Care Code ED Agricultural Agent for Lashaun Jimenez
--- OUTSIDE RECORDS SUMMARY | 2025-10-11 18:19 | XMS_ITS | Data Portability ---
Author Organization YUKO Castrejon [facility] Address [address] [address] Care Team Providers Care Physician Non Invasive Cardiologist Name Role Phone PETAR CHAIREZ Primary Care Provider [phone] Assessment No assessment recorded. Plan of Treatment Reminders Order Date Submit Date Provider Last Modified By Organization Details Last Modified Time Details Appointments None recorded. Lab unlisted lab - sureswab(R) advanced vaginitis plus, tma 2024 025 [email or web address], [address] [address], [address], [place], [address], 5 13:09:19 hemoglobin A1C/hemoglo bin total, QN, blood 2024 025 [facility], [address], [address], [place], [address], 5 13:49:39 thyrotropin , QN, serum or plasma 2024 025 [facility], [address], [address], [place], [address], 5 14:41:23 CMP, serum or plasma 2024 025 [facility], [address], [address], [place], [address], 5 13:46:20 lipid panel, blood 2024 025 [facility] [facility], [address], [address], [place], [address], 13:46:23 CBC 2024 025 [place] [facility], [address], [address], [place], [address], 13:49:58 Referral None recorded. Procedures None recorded. Surgeries None recorded. Imaging None recorded. Medication Orders fluconazole 150 mg tablet 2024 025 [facility] [place], [facility] [place], [address], 05:01:59 Patient TargetsNo targets recorded. Patient InstructionsNo instructions recorded. Reason for Referral None Reported. Results Created Date Observation Date Name Description Value Unit Range Abnormal Flag Note LastModifiedBy Organization Detail LastModifiedTime 06/10/2006/10/2025 CMP (FEMA LE) glucose 106.0 mg/dL 60.0-9 9.0 high Not Available [facility] [address], [place], [address], 06/10/2025 13:46:20 06/10/20 25 06/10/2025 CMP (FEMA LE) BUN (blood urea nitrogen) 10.0 mg/dL 10.0-2 6.0 Not Available [facility] [address], [place], [address], 06/10/2025 13:46:20 06/10/20 25 06/10/2025 CMP (FEMA LE) creatinine (serum) 1.0 mg/dL 0.4-1. 5 Not Available [facility] [address], [place], [address], 06/10/2025 13:46:20 06/10/20 25 06/10/2025 CMP (FEMA LE) BUN/creatini ne ratio 10.00 ratio Not Available [facility] [address] [facility], [place], [address], 06/10/2025 13:46:20 06/10/20 25 06/10/2025 CMP (FEMA LE) eGFR calculated 57.4 Not Available [facility] [address] [facility] [address], [place], [address], 06/10/2025 13:46:20 06/10/20 25 06/10/2025 CMP (FEMA LE) total protein 7.3 g/dL 6.0-8. 5 Not Available [facility] [address] [facility] [address], [place], [address], 06/10/2025 13:46:20 06/10/20 25 06/10/2025 CMP (FEMA LE) total bilirubin 0.9 mg/dL 0.2-1. 3 Not Available [facility] [address] [facility] [address], [place], [address], 06/10/2025 13:46:20 06/10/20 25 06/10/2025 CMP (FEMA LE) albumin 4.0 g/dL 3.5-5. 5 Not Available [facility] [address] [facility] [address], [place], [address], 06/10/2025 13:46:20 06/10/20 25 06/10/2025 CMP (FEMA LE) globulin 3.3 calc Not Available [facility] [address] [facility] [address], [place], [address], 06/10/2025 13:46:20 06/10/20 25 06/10/2025 CMP (FEMA LE) AST (SGOT) 32.0 U/L 0.0-46 .0 Not Available [facility] [address] [facility], [place], [address], 06/10/2025 13:46:20 06/10/20 25 06/10/2025 CMP (FEMA LE) altv (SGPT) 24.0 U/L 13.0-6 9.0 normal Not Available [facility] [address] [facility] 1, [place], [address], 06/10/2025 13:46:20 06/10/20 25 06/10/2025 CMP (FEMA LE) A/G ratio 1.2 ratio Not Available [facility] [address] [facility] 1, [place], [address], 06/10/2025 13:46:20 06/10/20 25 06/10/2025 CMP (FEMA LE) ALP phos 131.0 U/L 30.0-1 40.0 normal Not Available [facility] [address] [facility] 1, [place], [address], 06/10/2025 13:46:20 06/10/20 25 06/10/2025 CMP (FEMA LE) calcium 8.9 mg/dL 8.4-10 .5 Not Available [facility] [address] [facility] 1, [place], [address], 06/10/2025 13:46:20 06/10/20 25 06/10/2025 CMP (FEMA LE) sodium 140.0 mmol/ L 136.0- 145.0 Not Available [facility] [address] [facility] 1, [place], [address], 06/10/2025 13:46:20 06/10/20 25 06/10/2025 CMP (FEMA LE) potassium 3.7 mmol/ L 3.5-5. 1 Not Available [facility] [address] [facility] 1, [place], [address], 06/10/2025 13:46:20 06/10/20 25 06/10/2025 CMP (FEMA LE) chloride 105.0 mmol/ L 98.0-1 10.0 normal Not Available [facility] [address] [facility] 1, [place], [address], 06/10/2025 13:46:20 06/10/20 25 06/10/2025 CMP (FEMA LE) C02 28.0 mmol/ L 22.0-3 1.0 Not Available [facility] [address] [facility] 1, [place], [address], 06/10/2025 13:46:20 06/10/20 25 06/10/2025 CMP (FEMA LE) anion gap 7.0 calc Not Available [facility] [address] [facility] 1, [place], [address], 06/10/2025 13:46:20 06/10/20 25 06/10/2025 CMP (FEMA LE) osmolality 288.6 calc Not Available [facility] [address] [address], [place], [address], 06/10/2025 13:46:20 06/10/20 25 06/10/2025 LIPID PROFI LE (FEMA LE) cholesterol 136.0 mg/dL 0.0-20 0.0 Not Available [facility] [address] [address], [place], [address], 06/10/2025 13:46:23 06/10/20 25 06/10/2025 LIPID PROFI LE (FEMA LE) trig 93.0 mg/dL 0.0-15 0.0 Not Available [facility] [address] [facility] [address], [place], [address], 06/10/2025 13:46:23 06/10/20 25 06/10/2025 LIPID PROFI LE (FEMA LE) HDL - direct 44.0 mg/dL >40.0 Not Available [facility] [address] [facility] 1, [place], [address], 06/10/2025 13:46:23 06/10/20 25 06/10/2025 LIPID PROFI LE (FEMA LE) VLDL - direct 18.6 mg/dL Not Available [facility] [address] [facility] [address] [facility] [address], [place], [address], 06/10/2025 13:46:23 06/10/20 25 06/10/2025 LIPID PROFI LE (FEMA LE) LDL - direct 73.4 mg/dL 0.0-13 0.0 Not Available [facility] [address] [facility] [address] [facility] 1, [place], [address], 06/10/2025 13:46:23 06/10/20 25 06/10/2025 HBA1C hemaglobin A1C 5.3 4.2-6. 5 Not Available [facility] [address] [facility] 1, [place], [address], 06/10/2025 13:49:39 06/10/20 25 06/10/2025 CBC WBC 7.9 x10 4.0-10 .5 Not Available [facility] [address] [facility] 1, [place], [address], 06/10/2025 13:49:58 06/10/20 25 06/10/2025 CBC RBC 4.67 x10 3.50-5 .50 Not Available [facility] [address] [facility] 1, [place], [address], 06/10/2025 13:49:58 06/10/20 25 06/10/2025 CBC HGB 14.8 g/dL 12.0-1 6.0 Not Available [facility] [address] [facility] [address] [facility] 1, [place], [address], 06/10/2025 13:49:58 06/10/20 25 06/10/2025 CBC HCT 45.7 % 37.0-4 7.0 Not Available [facility] [address] [facility] 1, [place], [address], 06/10/2025 13:49:58 06/10/20 25 06/10/2025 CBC MCV 97.8 fL 80.0-9 9.9 Not Available [facility] [address] [facility] [address] [facility] 1, [place], [address], 06/10/2025 13:49:58 06/10/20 25 06/10/2025 CBC MCH 31.6 pg 27.0-3 2.0 Not Available [facility] [address] [facility] [address] [facility] 1, [place], [address], 06/10/2025 13:49:58 06/10/20 25 06/10/2025 CBC MCHC 32.3 g/dL 32.0-3 6.0 Not Available [facility] [address] [facility] 1, [place], [address], 06/10/2025 13:49:58 06/10/20 25 06/10/2025 CBC RDW 13.6 % 11.5-1 4.5 Not Available [facility] [address] [facility] [address] [facility] 1, [place], [address], 06/10/2025 13:49:58 06/10/20 25 06/10/2025 CBC plt 331.4 x10 140.0- 451.0 Not Available [facility] [address] [facility] [address] [facility] 1, [place], [address], 06/10/2025 13:49:58 06/10/20 25 06/10/2025 CBC lymphocytes % 17.1 % 20.0-5 0.0 low Not Available [facility] [address] [facility] [address] [facility] 1, [place], [address], 06/10/2025 13:49:58 06/10/20 25 06/10/2025 CBC granulcytes % 73.0 % 30.0-7 0.0 high Not Available [facility] [address] [facility], [place], [address], 06/10/2025 13:49:58 06/10/20 25 06/10/2025 CBC monocytes % 6.6 % 2.0-16 .0 Not Available [facility] [address] [address], [place], [address], 06/10/2025 13:49:58 06/10/20 25 06/10/2025 CBC granulcytes# 5.7 x10 Not Joceline ilable [facility] [address] [address], [place], [address], 06/10/2025 13:49:58 06/10/20 25 06/10/2025 CBC lymphocytes # 1.3 x10 Not Available [facility] [address] [address], [place], [address], 06/10/2025 13:49:58 06/10/20 25 06/10/2025 CBC monocytes # 0.5 x10 Not Avai lable [facility] [address] [address], [place], [address], 06/10/2025 13:49:58 06/10/20 25 06/10/2025 TSH TSH 0.52 uIU/m L 0.49-3 .82 Not Available [facility] [address] [facility], [place], [address], 06/10/2025 14:41:23 06/20/20 25 06/21/2025 SURES WAB(R ) ADVAN DEANNA VAGIN ITIS, TMA sureswab(R) adv bacterial vaginosis (bv), tma NEGATI VE negati ve normal Not Available [facility] - [address], [address], 06/21/2025 13:30:19 06/20/20 25 06/21/2025 SURES WAB(R ) ADVAN DEANNA VAGIN ITIS, TMA jarret species DETECT ED not detect ed abnormal Not Available [facility] - [address], [address], 06/21/2025 13:30:19 06/20/20 25 06/21/2025 SURES WAB(R ) ADVAN DEANNA VAGIN ITIS, TMA jarret glabrata NOT DETECT ED not detect ed normal Irina da speci es C. albic ans, C. tropi calis , C. parap braulio is, and/o r C. dubli niens is can be detec bradnie, but not diffe renti ated, in the Irina da spp. resul t. Not Available [facility] - [address], [address], 06/21/2025 13:30:19 06/20/20 25 06/21/2025 SURES WAB(R ) ADVAN DEANNA VAGIN ITIS, TMA trichomonas vaginalis (TV), tma NOT DETECT ED not detect ed normal Not Available [facility] - [address], [address], 06/21/2025 13:30:19 Result Notes None recorded. Problems Name Problem SNOMED Code Status Onset Date Resolution Date Notes Provider Name and Address Organization Details Recorded Time Migraine 89046003 Active 2022 Migraine Headache Nicole [place] mercado [facility] 5 16:18:43 Hyperlip idemia 69795324 Active 2022 CYNTHIA mercado [facility] 4 15:03:58 Hypothyr oidism 83659822 Active 2022 CYNTHIA AGUILA jess [facility] 4 15:04:03 Generali zed anxiety disorder 30854082 Active 2022 [facility] 4 15:03:55 Iliotibi al band friction syndrome of left knee 51568899555 9102 Completed 202306/20/2025 [facility] Patrickobloch [facility] 5 16:18:40 Coronary atherosc lerosis 094464872 Active 2023 proximal circumfl ex coronary artery drug eluting stent 10-11-20 [facility] 4 15:08:04 Acute non-ST segment elevatio n myocardi al infarcti on 510494850 Active 2023 [facility] 5 16:18:30 Plain X-ray of knee abnormal 912953240 Completed 202306/20/2025 Nicole Cross [facility] 5 16:18:48 Problem Notes None recorded. Procedures Surgical History Date Name Laterality Status Provider Name and Address Organization Details Recorded Time 4 Most Recent Mammogram completed CYNTHIA AYLA [facility] 10/29/2024 09:54:09 4 Joint Inj Kenalog- Shoulder, Hip, Knee completed Petar Chairez MD [address] [place] [address], [address], [facility] 01/30/2024 17:23:18 4 Joint Inj Kenalog- Shoulder, Hip, Knee completed Petar Chairez MD [address] [place] [address], [address], [facility], Paula 12/18/2023 15:19:04 placement of stent in coronary artery completed CYTNHIA AYLA [facility], [place] 12/18/2023 15:09:08 Carpal tunnel surgery [facility]2023 15:08:38 Imaging Results None recorded. Procedure Notes None recorded. Medical Equipment None Reported. Allergies No known drug allergies Medications Name Sig Start Date Stop Date Status Note LastModified by Organization Details LastModified Time amoxicill in 500 mg capsule TAKE 2 CAPSULES AT ONCE, TWO capsules in EIGHT hours THEN ONE THREE TIMES DAILY UNTIL GONE 04/20 completed Not Available Not Available Not Available atorvasta tin 40 mg tablet TAKE 1 TABLET BY MOUTH AT BEDTIME active Not Available Not Available No t Available fluconazo le 150 mg tablet Take 1 tablet every week by oral route for 7 days. 07/04 completed Not Available Not Available Not Available citalopra m 10 mg tablet TAKE 1 TABLET BY MOUTH EVERY DAY active Not Available Not Available No t Available medroxypr ogesteron e 2.5 mg tablet TAKE 1 TABLET EVERY DAY 2024 active Not Available Not Available Not Avai lable meloxicam 15 mg tablet TAKE 1 TABLET BY MOUTH EVERY DAY FOR 30 DAYS active Not Available Not Available No t Available acetamino phen 300 mg-codein e 30 mg tablet TAKE 1 TO 2 TABLETS BY MOUTH EVERY 6 HOURS with ibuprofe n 600mg (THREE 200mg tablets) NEEDED FOR PAIN and swelling 04/27 completed Not Available Not Available Not Available clopidogr el 75 mg tablet TAKE 1 TABLET BY MOUTH EVERY DAY in THE morning active Not Available Not Available No t Available levothyro xine 75 mcg tablet TAKE 1 TABLET EVERY DAY 2024 active Not Available Not Available Not Avai lable estradiol 0.025 mg/24 hr weekly transderm al patch APPLY 1 PATCH ON THE SKIN DIRECTED EVERY WEEK 2024 active Not Available Not Available Not Avai lable amitripty line 25 mg tablet TAKE 3 TABLETS BY MOUTH AT BEDTIME 2024 active Not Available Not Available Not Avai lable lorazepam 0.5 mg tablet TAKE 1/2 TO 1 TABLET BY MOUTH NEEDED FOR SEVERE PAINIC, TAKE INFREQUE NTLY POSSIBLE active Not Available Not Available No t Available levothyro xine 50 mcg tablet 10/22 completed Not Available Not Available Not Available pantopraz ole 40 mg tablet,de layed release 10/22 completed Not Available Not Available Not Available mupirocin 2 % topical ointment 06/17 completed Not Available Not Available Not Available metoprolo l succinate ER 25 mg tablet,ex tended release 24 hr TAKE 1 TABLET BY MOUTH EVERY DAY in THE morning active Not Available Not Available No t Available fluticaso ne propionat e 50 mcg/actua tion nasal spray,kelsi pension at bedtime 06/17 completed Not Available Not Available Not Available amoxicill in 875 mg-potass ium clavulana te 125 mg tablet TAKE 1 TABLET BY MOUTH TWICE DAILY FOR 10 DAYS active Not Available Not Available No t Available ezetimibe 10 mg tablet TAKE 1 TABLET BY MOUTH EVERY DAY at 930pm active Not Available Not Available No t Available aspirin daily 10/22 completed 0; Recorded 02/11/20 23 10:54AM by Wilbert Juarez, Office Visit; Not Available Not Available Not Available estradiol weekly 10/22 completed 436; Recorded 09/25/20 22 7:54AM by Cynthia Aguila LPN (Authori marjd through Petar Chairez MD), Refill Request; Mail Order Quantity : 12 Patch; Mail Order Days: 90 Days; Refill Quantity : 4; Patch; Not Available Not Available Not Available lorazepam daily 10/22 completed Recorded 12/06/19 23 12:38PM by Petar Chairez MD, Office Visit; Refill Quantity : 0; Not Available Not Available Not Available ferrous gluconate daily; take with Vitamin C 08/18 completed 436; Recorded 08/21/20 22 2:18PM by Cynthia Aguila LPN (Authori zed through Petar Chairez MD), Annotati on/Adden dum; Refill Quantity : 90; Tablet; Not Available Not Available Not Available amitripty line at bedtime 10/22 completed 436; Recorded 01/20/20 7:37AM by Cynthia Aguila LPN (Authori silas through Petar Chairez MD), Refill Request; Mail Order Quantity : 180 Tablet; Mail Order Days: 90 Days; Refill Quantity : 270; Tablet; Not Available Not Available Not Available Multi-Vit beltran daily active Not Available Not Available Not Available metoprolo l succinate two times daily 10/22 completed 0; Recorded 02/11/20 10:54AM by Wilbert Juarez, Office Visit; Not Available Not Available Not Available Caltrate- 600 Plus Vitamin D3 daily active Not Available Not Available Not Available ferrous gluconate 324 mg (38 mg iron) tablet TAKE 1 TABLET BY MOUTH EVERY DAY WITH VITAMIN TABS active Not Available Not Available No t Available ferrous gluconate 324 mg (37.5 mg iron) tablet Take 1 tablet every day by oral route. 12/18 completed take with Vitamin C Not Available Not Available Not Available aspirin 81 mg capsule Take 1 capsule every day by oral route. 10/22 completed Not Available Not Available Not Available Vitals Date Recorded Body height Oxygen saturation Oxygen saturation in Arterial blood by Pulse oximetry Heart rate Body temperature Provider Name and Address Organization Details Last Updated DateTime 5 166.37 cm 95 % 95 % 105 /min 97.8 [degF] CYNTHIA AGUILA [facility] 5 12:30:01 Date Recorded Body height Body mass index (BMI) Body weight Body temperature Heart rate Oxygen saturation Oxygen saturation in Arterial blood by Pulse oximetry Systolic And Diastolic Provider Name and Address Organization Details Last Updated DateTime 5 166.37 cm 23.1 kg/m2 57570.5 2 g 97.4 [degF] 74 /min 100 % 100 % 130/80 mm[Hg] Nicole Cross [facility] 5 12:45:32 Social History Question Answer Notes LastModified by Organizat ion Details LastModified Time Tobacco Smoking Status Former Smoker CYNTHIA AGUILA [facility] 12/18/2023 15:06:49 When Did You Quit Smoking? 16+yearssince lastcigarette Age 45 Information not available 06/20/2025 Do You Or Have You Ever Used Marijuana? Current Some Days User Information not available 06/20/2025 What Was The Date Of Your Most Recent Tobacco Screening? 06/20/2025 Information not available 06/20/2025 What Is Your Current Pack Years? 30ormorepacky ears Information not available 06/20/2025 At What Age Did You Start Smoking Tobacco? 15 Information not available 06/20/2025 How Much Tobacco Do You Smoke? No Information not available 06/20/2025 Sex: Unknown Functional Status Question Answer Note LastModified by Organization D etails LastModified Time Do you or have you ever used any other forms of tobacco or nicotine? No [email or web address] Information not available 12/18/2023 What is your level of alcohol consumption? None Information not available 06/20/2025 Mental Status None recorded. Family History Relationship Description Onset Age of this Age Resolved Age Notes LastModified by Organization Details LastModified Time Brother Diabetes mellitus [email or web address] [id number] Not available 12/18 15:05:01 Unspecified Relation Alcoholism [place] [id number] Not available 15:05:23 Medical History No medical history recorded. Gynecological History Statement/Question Response Most Recent Mammogram 10/28/2024 Obstetrics History GPAL:G 0 P 0 0 0 0 Immunizations Vaccine Type Date Status Note Provider Nam e and Address Organization Details Recorded Time zoster recombinant 5 completed CYNTHIA mercado [facility] 03/04/2025 13:20:54 Pneumococcal conjugate PCV20, polysaccharide CSL121 conjugate, adjuvant, PF 5 completed CYNTHIA mercado [facility] 03/04/2025 13:21:06 zoster recombinant 5 completed Nicole mercado [facility] 05/17/2025 14:14:02 zoster live 4 completed Not Available [facility] 06/21/2023 02:46:47 Tdap 7 completed Not Available [facility] 06/21/2023 02:46:48 COVID-19, mRNA, LNP-S, PF, 10 mcg/0.2 mL dose, greg-sucrose 2 completed Not Available [facility] 06/21/2023 02:46:48 Influenza, split virus, trivalent, preservative 0 completed Not Available [facility] 06/21/2023 02:46:49 pneumococcal polysaccharide PPV23 0 completed Not Available [facility] 06/21/2023 02:46:49 Influenza, high-dose, quadrivalent, PF 3 [facility] 06/17/2024 14:22:23 COVID-19, mRNA, LNP-S, PF, greg-sucrose, 30 mcg/0.3 mL 3 completed Winnie Morales [facility] 08/26/2024 08:55:15 Influenza, high-dose, trivalent, PF 4 completed Not Available [facility] 06/20/2025 12:30:16 COVID-19, mRNA, LNP-S, PF, greg-sucrose, 30 mcg/0.3 mL 4 completed Not Available [facility] 06/20/2025 12:30:16 Influenza, high-dose, quadrivalent, PF 1 completed [facility] 06/17/2023 14:09:22 Influenza, adjuvanted, quadrivalent, PF 2 completed [facility] 06/17/2023 14:09:22 COVID-19, mRNA, LNP-S, PF, 30 mcg/0.3 mL dose 1 completed [facility] 06/17/2023 14:09:22 COVID-19, mRNA, LNP-S, PF, 30 mcg/0.3 mL dose 1 completed Nicole Patricknick mercado, [facility], [place] 06/17/2023 14:09:22 COVID-19, mRNA, LNP-S, PF, 30 mcg/0.3 mL dose 1 completed Nicole mercado [facility] [place] 06/17/2023 14:09:22 COVID-19, mRNA, LNP-S, PF, 30 mcg/0.3 mL dose, greg-sucrose 2 completed Nicole mercado [facility] [place] 06/17/2023 14:09:22 Past Encounters Encounter ID Performer Location Encounter Start Date Encounter Closed Date Diagnosis/Indication Diagnosis SNOMED-CT Code Diagnosis ICD10 Code Diagnosis IMO Codes Diagnosis Note [id number] Petar Chairez MD [facility] ([facility] [address] [place] [phone] 03/17/2023 14:50:10 03/17/2023 20:43:36 Generalized anxiety disorder 78738374 F41.1 will continue citalopram for now watchingfo r signs of jessica. so far she is doing quite well.she is not feeling depressed. Hypothyroidism 93906349 E03.9 Hyperlipidemia 40044227 E78.5 [id number] Petar Chairez MD [facility] ([facility]) [address] [place] [phone] 06/17/2023 13:52:56 06/17/2023 14:25:03 Hyperglycemia 06511635 R73.9 Hypothyroidism 68108700 E03.9 Generalize d anxiety disorder 06505277 F41.1 will continue citalopram for now watchingfo r signs of jessica. so far she is doing quite well.she is not feeling depressed. [id number] Petar Chairez MD [facility] [facility]) [address] [place] [phone] 5 10/22/2023 08:46:30 10/22/2023 13:14:05 Iliotibial band friction syndrome of left knee [id number] M76.32 rehab taught handouts given ice and rest the kneeavoid nsaids [id number] Petar Chairez MD [facility] ([facility]) [address] [place] [address] [phone] 5 12/18/2023 15:01:22 12/18/2023 17:54:32 Generalized anxiety disorder [id number] F41.1 well controlled on current med Hyperlipidemia 05983119 E78.5 Hypothyroidism 01573418 E03.9 Iliotibial band friction syndrome of left knee [id number] 02234 M76.32 Fall in home 93332425 Y9 2.009 Pain of le ft knee joint [id number] 39064 M25.562 she has chronic left knee pain. she had a trip and fall 4 weeks or so ago with an increase in her chronic pain. she shows me a picture of rugburn she had which she has since healed from. Glucose le joseph outside reference range 740891277 R73.09 [id number] Petar Chairez MD [facility] ([facility]) [address] [place] [address] [phone] 5 12/30/2023 10:42:41 12/30/2023 18:25:32 Pain of right knee joint [id number] 67404 M25.074 [id number] Petar Chairez MD [facility] ([facility]) [address] [place] [address] [phone] 5 04/27/2024 14:34:22 04/27/2024 15:39:14 Pain of left knee joint 0181956379 30410 M25.562 will repeat xray due to fall. [id number] Petar Chairez MD [facility] ([facility]) [address] [place] [address] [phone] 5 05/11/2024 11:15:45 05/11/2024 13:56:07 Contusion of right shoulder [id number] S40.011A rom exercises encouraged . Local cold injury 696837 009 T69.8XXA supportive care [id number] Petar Chairez MD [facility] ([facility]) [address] [place] [address] [phone] 5 06/11/2024 09:26:20 06/11/2024 09:35:13 Hyperlipidemia 06539138 E78.5 Hypothyroidism 65796651 E03.9 Glucose le joseph outside reference range 569244542 R73.09 [id number] Petar Chairez MD [facility] ([facility]) [address] [place] [address] 5 06/17/2024 14:19:21 06/17/2024 15:35:48 Coronary atherosclerosis 406149274 I25.10 Generalize d anxiety disorder 74786675 F41.1 well controlled on current med Hyperlipidemia 21374585 E78.5 [id number] Petar Chairez MD [facility] ([facility]) [address] [place] [address] 5 03/04/2025 11:59:26 03/09/2025 17:45:05 Herpes zoster vaccination given [id number] 95898 Z23 Administra tion of pneumococcal vaccine 26697554 Z23 [id number] Petar Chairez MD [facility] ([facility]) [address] [place], [place] [phone] 05/17/2025 12:56:02 05/26/2025 04:06:23 Administration of Varicella-zoster vaccine for shingles 591340041 Z23 [id number] Petar Chairez MD [facility] ([facility]) [address] [place], [place] [phone] 06/10/2025 11:50:32 06/13/2025 11:27:48 Hyperlipidemia 61027811 E78.5 Hypothyroidism 06467462 E03.9 Glucose le joseph outside reference range 890212340 R73.09 [id number] Petar Chairez MD [facility] ([facility]) [address] [place], [place] [id number] 5 06/17/2025 12:33:11 06/20/2025 17:27:06 [id number] Petar Chairez MD [facility] ([facility]) [address] [place], [place] [phone] 5 06/20/2025 12:29:58 06/21/2025 09:42:18 Hypothyroidism 40346351 E03.9 Hyperlipidemia 75612634 E78.5 Generalize d anxiety disorder 33544384 F41.1 well controlled on current med Hyperglycemia 57260136 R 73.9 40329 Candidiasis of vagina 72 706184 B37.31 [id number] f/u right away if sx's are not resolved with tx Health Concerns Section Related Observation LastModified by Organization Detai ls LastModified Time None Recorded Concern Status LastModified by Organization Details LastModified Time None Recorded Advance Directives Directive None Recorded Payers Insurance Date Sequence Insurance Name Policy Number Policy [place] Covered Member ID [place] Member ID Guarantor Name 06/17/2025 1 [employer] (MEDICARE REPLACEMENT/A DVANTAGE - PPO) Jerrica Wallis [id number] Jerrica Wallis Notes Date Note Type Note Provider Name and Address Organization Details Recorded Time 06/20/2025 text/html Annual WellnessReported by PatientSocial/Behavior al HistoryFor physical activity, patient reportsdecreased physical activity (left knee injury march 19, so she stopped for about 6 weeks, but she is back at her exercise routine). For diet and nutrition, patient reportshealthy diet(currently limited diet due to dental issues). For additional lifestyle factors, patient reportsno tobacco useandno alcohol intake.Mental Status:For depression risk, patient reportsno history of depression.Functional AbilityFor vision, patient reportsworse both distance and near (glasses). For hearing, patient reportsno loss of hearing. Pt believes she has a yeast infection. She has had vaginal itching for 1 week. Pt states she has noticed pale blood when she wipes after a BM and believes it is hemorrhoid related. cbc lipid cmp tsh from 06/10/2025 reviewed. Petar Chairez MD [address] [place], [address], [facility], [place] 06/20/2025 17:18:45 OBGyn Episode No OBEpisode recorded.
== END 2025-10-11 10:26 | disposition home or self-care (01) ==
PROVIDERS: Emergency Provider Family Medicine; PCP Family Medicine
DX: S83.92XA Sprain of unspecified site of left knee, initial encounter (principal); Z79.02 Long term (current) use of antithrombotics/antiplatelets; Z87.891 Personal history of nicotine dependence; I10 Essential (primary) hypertension; X58.XXXA Exposure to other specified factors, initial encounter
CPT/HCPCS: 73562; 99283

== ENCOUNTER → 2025-10-13 14:21 | Outpatient (BNVA) | payer MEDICARE, SELFPAY | PROVIDERS: PCP Family Medicine; Visit Provider Orthopaedic Surgery | DX: S83.92XA Sprain of unspecified site of left knee, initial encounter (principal); X58.XXXA Exposure to other specified factors, initial encounter | CPT/HCPCS: 73562; 99203; 99213 ==

== ENCOUNTER 2025-10-26 12:53 | Outpatient (CLI) | payer MEDICARE, SELFPAY ==
--- NOTE | 2025-10-26 13:00 | MR_ITS ---
WS: [id number] MRI LEFT KNEE HISTORY: Injury 5 weeks ago. Pain. COMPARISON: Radiograph 10/13/2025 Anterior cruciate ligament: Intact. Posterior cruciate ligament: Intact. Medial collateral ligament: Small amount of fluid adjacent to the MCL but no full-thickness tear. MCL is slightly displaced from the joint line by an extruded meniscus. Posterior lateral corner structures: Intact. Medial menisci: Complex tear involving the meniscal root of the posterior horn. Tear extends to the articular surfaces. Anterior horn slightly extruded from the joint line but otherwise intact. Lateral meniscus: Intact. Normal signal, size and shape. Extensor mechanism: Distal quadriceps tendon and patellar tendons are intact. Fluid and soft tissue: Small suprapatellar joint effusion. Soft tissue edema surrounding the knee. Moderate size Borges's cyst. Osseous and articular structures: Patellofemoral compartment: Normal position of the patella. There is slight lateral tilting. Narrowing of the joint space. No fracture or marrow edema. Mild chondromalacia over the central medial facet. Medial compartment: Moderate narrowing of the medial compartment. There is a subtle area of marrow edema involving the tibial metaphysis. Suspect mild trabecular injury. Mild diffuse chondromalacia. Lateral compartment: Mild narrowing of the lateral compartment. Thinning and fissuring of the cartilage but no fracture or marrow edema. MR/MR knee LT wo con* [id number] IMPRESSION: 1. No ACL tear. 2. Complex tear meniscal root posterior horn medial meniscus. 3. Soft tissue edema surrounding the knee. 4. Subtle marrow edema in the medial tibial metaphysis consistent with mild tr abecular injury. No fracture identified. 5. Moderate narrowing the medial compartment with diffuse chondromalacia. 6. Mild narrowing patellofemoral and lateral compartments. 7. Moderate-sized Borges's cyst. 8. Mild MCL sprain.
== END 2025-10-26 12:54 | disposition home or self-care (01) ==
LOC: RAD 12:53
PROVIDERS: PCP Family Medicine; Visit Provider Orthopaedic Surgery
DX: S83.242A Other tear of medial meniscus, current injury, left knee, initial encounter (principal); X58.XXXA Exposure to other specified factors, initial encounter; M71.22 Synovial cyst of popliteal space [Baker], left knee
CPT/HCPCS: 73721

== ENCOUNTER → 2025-11-03 15:20 | Outpatient (BNVA) | payer MEDICARE, SELFPAY | PROVIDERS: PCP Family Medicine; Visit Provider Orthopaedic Surgery | DX: M25.561 Pain in right knee (principal); Z51.89 Encounter for other specified aftercare | CPT/HCPCS: 73560; 73565; 99213 ==

== ENCOUNTER 2025-11-09 14:46 | Outpatient (CLI) | payer MEDICARE, SELFPAY ==
--- NOTE | 2025-11-09 15:15 | MR_ITS ---
WS: [id number] MRI RIGHT KNEE HISTORY: RIGHT knee pain for 5 weeks. No injury. COMPARISON: Radiograph 11/03/2025 Anterior cruciate ligament: Thickened ACL with intermediate signal. Anterior bands appear intact. Posterior bands are more difficult to visualize in their entirety. There is no full-thickness ACL tear. Mild sprain and partial tear is not excluded. Posterior cruciate ligament: Intact. Medial collateral ligament: Small amount of fluid along the MCL. No tear. Posterior lateral corner structures: Intact. Medial menisci: Small caliber posterior horn with blunting of the free edge. Loss of the normal contour of the posterior horn. Anterior horn is normal. The meniscus is partially displaced from the joint line. Lateral meniscus: Small caliber anterior horn. No tear identified. Extensor mechanism: Distal quadriceps tendon and patellar tendons are intact. Fluid and soft tissue: Moderate-sized suprapatellar joint effusion. No Borges's cyst. Osseous and articular structures: Patellofemoral compartment: Very slight lateral subluxation of the patella. Patella. No full-thickness cartilage defects or marrow edema. Medial compartment: Mild narrowing of the medial compartment. Small marginal osteophytes. Small subchondral cyst along the tibial plateau towards the MCL. Moderate chondromalacia along the weightbearing surface of the femoral condyle and superficial along the tibial plateau. This is also at the site of the meniscal tear. Lateral compartment: Mild narrowing. Mild superficial fraying of the cartilage. No full-thickness defect. There is a small osteochondral lesion measuring 8 mm involving the lateral femoral condyle close to the intercondylar notch. MR/MR knee RT wo con* [id number] IMPRESSION: 1. Mucoid degeneration of the ACL. No full-thickness tear is identified. Mild sprain suspected. 2. Posterior horn medial meniscus with blunting of the free edge. Posterior ho rn is smaller caliber than expected consistent with a tear. 3. Moderate-sized suprapatellar joint effusion. 4. Mild narrowing the medial compartment with a small subchondral cyst on the tibial plateau. Moderate chondromalacia weightbearing surface of the femoral co ndyle and superficial tibial plateau. 5. Mild narrowing lateral compartment with fraying of the cartilage. No full-t hickness defect. 6. 8 mm osteochondral lesion lateral femoral condyle along the intercondylar n otch.
== END 2025-11-09 14:47 | disposition home or self-care (01) ==
LOC: RAD 14:49
PROVIDERS: PCP Family Medicine; Visit Provider Orthopaedic Surgery
DX: S83.241A Other tear of medial meniscus, current injury, right knee, initial encounter (principal); X58.XXXA Exposure to other specified factors, initial encounter; M94.261 Chondromalacia, right knee
CPT/HCPCS: 73721

== ENCOUNTER → 2025-11-15 13:02 | Outpatient (BNVA) | payer MEDICARE, SELFPAY | PROVIDERS: PCP Family Medicine; Visit Provider Orthopaedic Surgery | DX: M94.261 Chondromalacia, right knee (principal) | CPT/HCPCS: 99213 ==